=== PATIENT | male | born 1955 | race Caucasian/White ===

== ENCOUNTER → 2016-08-21 | Outpatient (CLI) | payer OTHER ==
[~2016-08-21] VITALS: Ht 177.8 cm; Wt 81.8 kg
[~2016-08-21] MED LIST: ACIDCAP5 PO; ALLE180T33 PO; ECHI400C2 PO; GINSCAP3 PO; NS 1,000 ML IV SCH; PROPOFOL 200 MG/20 ML VIAL As Ordered ONE; TUMERIC PO; VITACAP9 PO
--- NOTE | 2016-08-21 07:55 | ROOR ---
Patient Name: Conor Sandra Procedure Date: 08/21/2016 7:32 AM Date of : 1955 Age: 61 Room: [facility] Gender: Male Note Status: Finalized Procedure: Colonoscopy to Cecum + Biopsy Polypectomy Indications: High risk colon cancer surveillance: Personal history of colonic polyps, Last colonoscopy: 2012 Providers: Som Carpenter MD Referring MD: CAMI GAYLE MD Requesting Provider: Medicines: Monitored Anesthesia Care Complications: No immediate complications. Procedure: Pre-Anesthesia Assessment: - The heart rate, respiratory rate, oxygen saturations, blood pressure, adequacy of pulmonary ventilation, and response to care were monitored throughout the procedure. The Colonoscope was introduced through the anus and advanced to the cecum, identified by appendiceal orifice and ileocecal valve. The colonoscopy was performed without difficulty. The patient tolerated the procedure well. The quality of the bowel preparation was excellent. Findings: The perianal and digital rectal examinations were normal. Non-bleeding internal hemorrhoids were found during retroflexion. The hemorrhoids were small and Grade I (internal hemorrhoids that do not prolapse). A small polyp was found in the cecum. The polyp was sessile. The polyp was removed with a cold biopsy forceps. Resection and retrieval were complete. The exam was otherwise without abnormality on direct and retroflexion views. Impression: - Non-bleeding internal hemorrhoids. - One small polyp in the cecum, removed with a cold biopsy forceps. Resected and retrieved. - The examination was otherwise normal on direct and retroflexion views. - The exam was otherwise normal to the cecum. Recommendation: - Patient has a contact number available for emergencies. The signs and symptoms of potential delayed complications were discussed with the patient. Return to normal activities tomorrow. Written discharge instructions were provided to the patient. - High fiber diet. - Discharge patient to home. - Continue present medications. - Await pathology results. - Telephone GI clinic for pathology results in 1 week. - Repeat colonoscopy in 5 years for surveillance based on pathology results. - Return to referring physician. - The findings and recommendations were discussed with the patient's family. Som Carpenter MD Som Carpenter MD 08/21/2016 7:54:53 AM This report has been signed electronically. Number of Addenda: 0 Note Initiated On: 08/21/2016 7:32 AM Estimated Blood Loss: Estimated blood loss: none.
[2016-08-21 08:19] VITALS: BP 125/60
== END | disposition home or self-care (01) ==
LOC: M OPP 06:45
PROVIDERS: ATTEND Internal Medicine Gastroenterology
DX: Z12.11 Encounter for screening for malignant neoplasm of colon (principal); K64.0 First degree hemorrhoids; D12.0 Benign neoplasm of cecum; F17.200 Nicotine dependence, unspecified, uncomplicated; F17.228 Nicotine dependence, chewing tobacco, with other nicotine-induced disorders; Z79.899 Other long term (current) drug therapy

== ENCOUNTER → 2016-09-29 | Outpatient (CLI) | payer OTHER ==
[~2016-09-29] MED LIST changes: -NS 1,000 ML IV SCH; -PROPOFOL 200 MG/20 ML VIAL As Ordered ONE
[2016-09-29 08:56] LABS: MEAN CORPUSCULAR HEMOGLOBIN 31.5 pg (27.0-33.0); RED CELL DISTRIBUTION WIDTH 13.7 % (11.5-14.5); WHITE BLOOD COUNT 6.6 K/mm3 (4.0-10.0)
--- NOTE | 2016-09-29 09:10 | REP ---
Clinical: Chest pain and fatigue. Comparison: 06/13/2013 . Technique: PA and lateral. Findings: The mediastinum and cardiac silhouette are normal. The lung butt are clear and without acute consolidation, effusion, or pneumothorax. The skeletal structures are intact and normal. Impression: 1. No acute cardiopulmonary process. Signed by Hussein Arguelles MD 09/29/2016 09:01 A
[2016-09-29 09:21] LABS: ALBUMIN 3.8 GM/DL (3.2-5.2); ALBUMIN/GLOBULIN RATIO 1.46 (1.00-1.93); BILIRUBIN,TOTAL 0.4 MG/DL (0.2-1.0); CALCIUM LEVEL 8.7 MG/DL (8.8-10.2); CREATININE FOR GFR 1.3 MG/DL (0.70-1.30); GLOMERULAR FILTRATION RATE 59.4 (>49); POTASSIUM SERUM 4.2 MEQ/L (3.5-5.1); TOTAL PROTEIN 6.4 GM/DL (6.4-8.2)
--- NOTE | 2016-09-29 16:38 | ECGEPIP ---
Stationary ECG Study [facility] Test Date: 2016-09-29 Pat Name: LAURIE PENA Department: Room: - Gender: M Candy Dipper: MICHELLE : 1955 Requested By: Viviana Jenkins Order Number: [id number] Reading MD: Buster Chau Measurements Intervals [place] Rate: 56 P: 42 AK: 142 QRS: 16 QRSD: 88 T: 62 QT: 388 QTc: 377 Interpretive Statements SINUS BRADYCARDIA No significant change compared with 06/13/2013. Electronically Signed On 09-29-2016 16:38:21 EST by Buster Chau
== END ==
LOC: M LAB 08:28
PROVIDERS: ATTEND Family Medicine
DX: R53.83 Other fatigue (principal)

== ENCOUNTER → 2017-02-23 | Outpatient (CLI) | payer OTHER ==
[~2017-02-23] MED LIST changes: +GASTROGRAFIN SOLUTION 30ML (Q9963) As Ordered ONE; +ISOVUE-370 76% 100ML VIAL (Q9967) As Ordered ONE
--- NOTE | 2017-02-23 11:44 | REP ---
CT of the chest with IV contrast for restaging lymphoma: Comparison: 2014. The two enlarged right axillary lymph nodes identified previously have decreased size, one measuring 7 mm (12 mm previously and the other measuring 9 mm (15 mm previously. There are other normal-size axillary nodes bilaterally. Previously there was an enlarged aortopulmonic window node measuring 10 mm. This node today measures 6 mm. There is no other mediastinal lymph node enlargement. There is no axillary lymph node enlargement. There are no acute infiltrates or pleural effusions. There are no lung masses or nodules. Thoracic aorta is unremarkable. The cardiac size is normal. Impression: The previously identified enlarged lymph nodes in the right axilla and mediastinum have decreased size and are now normal size. There is no new lymph node enlargement. Otherwise, negative CT study of the chest. Signed by Conor Norton MD 02/23/2017 11:34 A
--- NOTE | 2017-02-23 12:01 | REP ---
CT abdomen pelvis multiphase scanning for restaging of lymphoma: Comparison is 2014 The study is initially performed without IV contrast. There is biphasic imaging after IV contrast during the arterial phase of enhancement later during the equilibrium phase of enhancement. There are multiple hepatic cysts, not significantly changed. The hepatic parenchyma is otherwise homogeneous. There are multiple gallbladder calculi with ring shaped calcification. These were also present previously. There is no gallbladder wall thickening, pericholecystic fluid or biliary duct dilatation. The pancreas and spleen are unremarkable. There are no focal splenic lesions. The adrenals and kidneys are unremarkable. The periaortic adenopathy identified previously has decreased in size today measuring 9 mm short axis, previously 13 mm. The previously identified left iliac adenopathy has resolved. The previously identified left femoral adenopathy has decreased measuring 7 mm short axis (previously 14 mm). The previously identified inguinal adenopathy has resolved. There is no mesenteric adenopathy or ascites. There are no lytic, blastic or destructive skeletal changes. There is a left renal cortical cyst, unchanged. Impression: The patient's known adenopathy has also improved. There are no new lymph nodes. No enlarging lymph nodes. No ascites. No mesenteric adenopathy. Multiple hepatic cysts are unchanged. Left renal cortical cyst is unchanged. There are no focal splenic lesions. Cholelithiasis, unchanged. Signed by Conor Norton MD 02/23/2017 11:52 A
== END ==
LOC: M RAD 09:31
PROVIDERS: ATTEND Internal Medicine Medical Oncology
DX: C82.90 Follicular lymphoma, unspecified, unspecified site (principal); K80.20 Calculus of gallbladder without cholecystitis without obstruction; K76.89 Other specified diseases of liver; N28.1 Cyst of kidney, acquired
CPT/HCPCS: 71260; 74178; Q9963; Q9967

== ENCOUNTER → 2017-03-07 | Outpatient (CLI) | payer OTHER ==
[~2017-03-07] MED LIST changes: -GASTROGRAFIN SOLUTION 30ML (Q9963) As Ordered ONE; -ISOVUE-370 76% 100ML VIAL (Q9967) As Ordered ONE
[2017-03-07 09:57] LABS: MEAN CORPUSCULAR HEMOGLOBIN 32.6 pg (27.0-33.0); MEAN CORPUSCULAR HGB CONC 34.2 g/dl (32.0-36.5); MEAN CORPUSCULAR VOLUME 95.3 fl (80.0-96.0); RED CELL DISTRIBUTION WIDTH 13.1 % (11.5-14.5); WHITE BLOOD COUNT 9.6 K/mm3 (4.0-10.0)
[2017-03-07 10:05] LABS: INR 0.88
[2017-03-07 10:25] LABS: ALBUMIN 3.6 GM/DL (3.2-5.2); ALBUMIN/GLOBULIN RATIO 1.16 (1.00-1.93); ALKALINE PHOSPHATASE 417 U/L (45-117); ALT/SGPT 307 U/L (12-78); ANION GAP 9 MEQ/L (8-16); AST/SGOT 129 U/L (15-37); BILIRUBIN,TOTAL 0.8 MG/DL (0.2-1.0); BLOOD UREA NITROGEN 20 MG/DL (7-18); CALCIUM LEVEL 8.9 MG/DL (8.8-10.2); CARBON DIOXIDE LEVEL 28 MEQ/L (21-32); CHLORIDE LEVEL 104 MEQ/L (98-107); CHOLESTEROL LEVEL 145 MG/DL (<200); CREATININE FOR GFR 1.16 MG/DL (0.70-1.30); GLOMERULAR FILTRATION RATE > 60.0 (>49); GLUCOSE, FASTING 98 MG/DL (80-110); POTASSIUM SERUM 4.8 MEQ/L (3.5-5.1); SODIUM LEVEL 141 MEQ/L (136-145); TOTAL PROTEIN 6.7 GM/DL (6.4-8.2); TRIGLYCERIDES LEVEL 79 MG/DL (<150)
== END ==
LOC: M LAB 09:03
PROVIDERS: ATTEND Family Medicine
DX: Z01.818 Encounter for other preprocedural examination (principal); I10 Essential (primary) hypertension; R53.83 Other fatigue

== ENCOUNTER 2017-03-16 05:51 | Day surgery (SDC) | payer OTHER ==
[~2017-03-16] VITALS: Ht 177.8 cm; Wt 74.8 kg
[2017-03-16] MEDS ORDERED: LR 1,000 ML IV ONE (06:00)
[2017-03-16] MEDS ORDERED: LIDOCAINE W/EPINEPHRINE 1% 20ML VIAL As Ordered ONE (07:17)
[2017-03-16] MEDS ORDERED: OXYMETAZOLINE NASAL SPRAY (AFRIN) As Ordered ONE (07:26)
[2017-03-16] MEDS ORDERED: ONDANSETRON 4MG/2ML VIAL (J2405) As Ordered ONE (08:04)
[2017-03-16] MEDS ORDERED: fentaNYL 250 MCG/5 ML INJECTION (J3010) As Ordered ONE (08:04)
[2017-03-16] MEDS ORDERED: ROCURONIUM BROMIDE 50 MG/5 ML VIAL/SYRINGE As Ordered ONE (08:04)
[2017-03-16] MEDS ORDERED: LIDOCAINE 2% INJ 100 MG/5 ML SDV (FOR ANES.) As Ordered ONE (08:04)
[2017-03-16] MEDS ORDERED: MIDAZOLAM INJ 2 MG/2 ML VIAL (J2250) As Ordered ONE (08:04)
[2017-03-16] MEDS ORDERED: PROPOFOL 200 MG/20 ML VIAL As Ordered ONE ×2 (08:04→08:18)
[2017-03-16] MEDS ORDERED: dexameTHASONE 4 MG/ML 1ML VIAL (J1100) As Ordered ONE (08:04)
[2017-03-16] MEDS ORDERED: ePHEDrine SULFATE 25 MG/5 ML(5MG/ML) SYRINGE As Ordered ONE (08:04)
[2017-03-16] MEDS ORDERED: GLYCOPYRROLATE INJ 0.2 MG/ML 2 ML VIAL As Ordered ONE (08:12)
[2017-03-16] MEDS ORDERED: NEOSTIGMINE 1MG/ML 5 ML SYRINGE (J2710) As Ordered ONE (08:12)
[2017-03-16] MEDS ORDERED: MEPERIDINE INJ 25 MG/ML VIAL (J2175) IV PRN (09:00)
[2017-03-16] MEDS ORDERED: METOCLOPRAMIDE INJ 10MG/2ML VIAL (J2765) IV PRN (09:00)
[2017-03-16] MEDS ORDERED: ONDANSETRON 4MG/2ML VIAL (J2405) IV PRN (09:00)
[2017-03-16] MEDS ORDERED: PERCOCET 5MG/325MG TAB PO PRN (09:00)
[2017-03-16] MEDS ORDERED: LR 1,000 ML IV SCH ×2 (09:00)
[2017-03-16] MEDS ORDERED: fentaNYL 100 MCG/2 ML INJECTION (J3010) IV PRN (09:00)
[2017-03-16 11:00] VITALS: BP 128/61
--- NOTE | 2017-03-17 08:09 | RO ---
DATE OF PROCEDURE: 03/16/2017 PREPROCEDURE DIAGNOSIS: Right maxillary cyst. POSTPROCEDURE DIAGNOSIS: Right maxillary cyst. PROCEDURE: Removal of right maxillary radicular cyst. SURGEON: Gordon Stanford DMD HALL CLEANER: None ANESTHESIA: General ESTIMATED BLOOD LOSS: 10 mL. SPECIMENS: Radicular cyst. COMPLICATIONS: None. DESCRIPTION OF PROCEDURE: All R/B/A explained to patient. All questions answered. Informed consent obtained. Patient was brought into the operating room by anesthesia and placed in a supine position. All the monitors were placed. Patient was intubated nasally using a 6.5 nasal tube. Tube placement confirmed using CO2 monitor and positive capnography. Surgeon went to scrub and approach the patient in a sterile fashion. Moist vaginal packing used as a throat pack. Bite block placed and found to fit passively. Approximately 8cc of lidocaine 1% with 1/100,000 epinephrine used via infiltration of anterior maxilla from area of #5 to area of #12. Tolerated well. No complications. 15 blade used in a sulcular fashion on the palate to create a flap. Full mucoperiosteal palatal flap performed from area of #5 extending and crossing the midline to area of #12. Cystic lesion encountered and curretage of lesion performed. Cystic lining send to pathological examination. Area examined and no perforation noted on nasal mucosa and/.or maxillary sinus. Area irrigated and closed using 3-0 chromic. Throat pack and bite block removed and patient extubated when criteria was meet by anesthesia Patient transferred to recovery in stable condition Gordon Stanford DMD [facility]
== END 2017-03-16 11:20 | disposition home or self-care (01) ==
LOC: M SDC 05:51
PROVIDERS: ATTEND Dentist Oral and Maxillofacial Surgery
DX: K04.8 Radicular cyst (principal); C85.90 Non-Hodgkin lymphoma, unspecified, unspecified site; K58.9 Irritable bowel syndrome, unspecified; Z79.899 Other long term (current) drug therapy; Z92.21 Personal history of antineoplastic chemotherapy; Z85.828 Personal history of other malignant neoplasm of skin; Z92.3 Personal history of irradiation; Z72.0 Tobacco use
CPT/HCPCS: 41826; 88305; J1100; J2250; J2405; J2710; J3010

== ENCOUNTER → 2017-04-19 | Outpatient (CLI) | payer OTHER ==
[2017-04-19 10:05] LABS: ALKALINE PHOSPHATASE 217 U/L (45-117); ALT/SGPT 323 U/L (12-78); AST/SGOT 185 U/L (15-37)
== END ==
LOC: M LAB 08:45
PROVIDERS: ATTEND Family Medicine
DX: R10.9 Unspecified abdominal pain (principal)

== ENCOUNTER → 2017-06-13 | Outpatient (CLI) | payer OTHER ==
[2017-06-13 09:26] LABS: MEAN CORPUSCULAR HEMOGLOBIN 31.9 pg (27.0-33.0); MEAN CORPUSCULAR HGB CONC 34.1 g/dl (32.0-36.5); MEAN CORPUSCULAR VOLUME 93.6 fl (80.0-96.0); PLATELET COUNT, AUTOMATED 210 10^3/uL (150-450); WHITE BLOOD COUNT 6.7 10^3/uL (4.0-10.0)
[2017-06-13 10:20] LABS: ALBUMIN 3.9 GM/DL (3.2-5.2); ALBUMIN/GLOBULIN RATIO 1.39 (1.00-1.93); BILIRUBIN,TOTAL 0.5 MG/DL (0.2-1.0); CALCIUM LEVEL 9.1 MG/DL (8.8-10.2); CREATININE FOR GFR 1.34 MG/DL (0.70-1.30); GLOMERULAR FILTRATION RATE 57.1 (>49); POTASSIUM SERUM 4.2 MEQ/L (3.5-5.1); TOTAL PROTEIN 6.7 GM/DL (6.4-8.2)
== END ==
LOC: M LAB 08:53
PROVIDERS: ATTEND Family Medicine
DX: E03.9 Hypothyroidism, unspecified (principal)

== ENCOUNTER 2018-04-12 08:41 | Day surgery (SDC) | payer MEDICARE, OTHER ==
[2018-04-12] MEDS: LIDOCAINE W/EPINEPHRINE 1% 20ML VIAL As Ordered (11:05)
[2018-04-12] MEDS: BUPIVACAINE/EPIN 0.25% 30 ML VIAL As Ordered (11:05)
[2018-04-12] MEDS: BACITRACIN OINT 30GM As Ordered (11:07)
[2018-04-12] MEDS ORDERED: PROPOFOL 200 MG/20 ML VIAL As Ordered (11:13)
[2018-04-12] MEDS ORDERED: LIDOCAINE 2% INJ 100 MG/5 ML SDV (FOR ANES.) As Ordered (11:13)
== END 2018-04-12 12:25 | disposition home or self-care (01) ==
LOC: M SDC 12:25
DX: C85.91 Non-Hodgkin lymphoma, unspecified, lymph nodes of head, face, and neck (principal); K58.9 Irritable bowel syndrome, unspecified; Z79.899 Other long term (current) drug therapy; Z92.21 Personal history of antineoplastic chemotherapy; Z92.3 Personal history of irradiation; Z72.0 Tobacco use
CPT/HCPCS: 11422

== ENCOUNTER → 2018-05-07 | Outpatient (CLI) | payer MEDICARE, OTHER | LOC: M PLARAD 09:28 | DX: C82.08 Follicular lymphoma grade I, lymph nodes of multiple sites (principal) | CPT/HCPCS: 78815 ==

== ENCOUNTER → 2018-05-24 | Outpatient (CLI) | payer MEDICARE, OTHER ==
[~2018-05-24] MED LIST changes: -ACIDCAP5 PO; -ALLE180T33 PO; -ECHI400C2 PO; -GINSCAP3 PO; +LIDOCAINE 1% MDV 20ML VIAL As Ordered; -TUMERIC PO; -VITACAP9 PO
== END ==
LOC: M RADPRO 08:34
DX: C85.12 Unspecified B-cell lymphoma, intrathoracic lymph nodes (principal); R22.2 Localized swelling, mass and lump, trunk
CPT/HCPCS: 62267

== ENCOUNTER → 2018-07-04 | Outpatient (CLI) | payer MEDICARE, OTHER | LOC: M SMT 13:08 | DX: Z01.818 Encounter for other preprocedural examination (principal); R91.8 Other nonspecific abnormal finding of lung field | CPT/HCPCS: 71046 ==

== ENCOUNTER 2018-07-09 07:14 | Day surgery (SDC) | payer MEDICARE, OTHER ==
[2018-07-09] MEDS ORDERED: MUPIROCIN 2% OINT 22 GM TUBE TOP (07:30)
[2018-07-09] MEDS: LR 1,000 ML IV (07:50)
[2018-07-09] MEDS ORDERED: PROPOFOL 200 MG/20 ML VIAL As Ordered (07:59)
[2018-07-09] MEDS ORDERED: MIDAZOLAM INJ 2 MG/2 ML VIAL (J2250) As Ordered ×2 (07:59→08:19)
[2018-07-09] MEDS ORDERED: fentaNYL 100 MCG/2 ML INJECTION (J3010) As Ordered (08:04)
[2018-07-09] MEDS: HEPARIN SOD (PORCINE) 5000 UNITS/ML VIAL As Ordered (08:38)
[2018-07-09] MEDS: LIDOCAINE 1% SDV INJ 30 ML VIAL As Ordered (08:38)
[2018-07-09] MEDS ORDERED: ePHEDrine SULFATE 25 MG/5 ML(5MG/ML) SYRINGE As Ordered (08:47)
[2018-07-09] MEDS: BUPIVACAINE LIPOSOME/PF 1.3% 20ML VIAL (13.3MG/ML)(EXPAREL)(C9290 PER1MG) As Ordered (08:58)
[2018-07-09] MEDS ORDERED: LR 1,000 ML IV (09:30)
[2018-07-09] MEDS ORDERED: NORCO, ANEXSIA 5/325MG TABLET (HYDROcodone/ACETAMINOPHEN) PO (09:30)
[2018-07-09] MEDS ORDERED: ONDANSETRON 4MG/2ML VIAL (J2405) IV (09:30)
== END 2018-07-09 10:15 | disposition home or self-care (01) ==
LOC: M SDC 07:14
DX: C82.11 Follicular lymphoma grade II, lymph nodes of head, face, and neck (principal); Z45.2 Encounter for adjustment and management of vascular access device; K58.8 Other irritable bowel syndrome; Z92.3 Personal history of irradiation; Z92.21 Personal history of antineoplastic chemotherapy; Z79.899 Other long term (current) drug therapy
CPT/HCPCS: 36561

== ENCOUNTER → 2018-07-15 | Outpatient (CLI) | payer MEDICARE, OTHER | LOC: M SMT 10:48 | DX: C82.91 Follicular lymphoma, unspecified, lymph nodes of head, face, and neck (principal); R91.1 Solitary pulmonary nodule; M51.34 Other intervertebral disc degeneration, thoracic region; Z97.8 Presence of other specified devices | CPT/HCPCS: 71046 ==

== ENCOUNTER 2018-09-09 13:12 | Emergency (ER) | payer MEDICARE, OTHER ==
[~2018-09-09] VITALS: Ht 177.8 cm; Wt 79.5 kg
[~2018-09-09 13:12] MED LIST changes: +ACIDCAP5 PO; +ALLE180T33 PO; +ECHI400C2 PO; +GARL1200 PO; +GINSCAP3 PO; +LEVS0.124 SL; -LIDOCAINE 1% MDV 20ML VIAL As Ordered; +TUMERIC PO; +VITACAP9 PO
[2018-09-09 14:16] LABS: BASO % 0.3 % (0.0-1.0); EOS # 0.1 10^3/uL (0.0-0.50); EOS % 1.4 % (0.0-3.0); HEMOGLOBIN 13.1 g/dl (13.5-17.5); LYMPH % 2.9 % (24.0-44.0); MEAN CORPUSCULAR HEMOGLOBIN 31.2 pg (27.0-33.0); MEAN CORPUSCULAR HGB CONC 34.5 g/dl (32.0-36.5); MEAN CORPUSCULAR VOLUME 90.5 fl (80.0-96.0); MONO # 1.1 10^3/uL (0.0-0.8); MONO % 18.2 % (0.0-5.0); NEUTROPHILS # 4.8 10^3/uL (1.8-7.7); NEUTROPHILS % 76.9 % (36.0-66.0); PLATELET COUNT, AUTOMATED 215 10^3/uL (150-450); WHITE BLOOD COUNT 6.3 10^3/uL (4.0-10.0)
[2018-09-09 14:48] LABS: LYMPH # 0.2 10^3/uL (1.5-4.5)
[2018-09-09 14:50] LABS: ALBUMIN 3.8 GM/DL (3.2-5.2); ALT/SGPT 21 U/L (12-78); BILIRUBIN,DIRECT 0.2 MG/DL (0.0-0.2); BILIRUBIN,TOTAL 0.9 MG/DL (0.2-1.0); BLOOD UREA NITROGEN 9 MG/DL (7-18); CALCIUM LEVEL 9.1 MG/DL (8.8-10.2); CARBON DIOXIDE LEVEL 30 MEQ/L (21-32); CHLORIDE LEVEL 99 MEQ/L (98-107); CPK CREATINE PHOSPHOKINASE 58 U/L (39-308); CREATININE FOR GFR 0.92 MG/DL (0.70-1.30); GLOMERULAR FILTRATION RATE > 60.0 (>49); GLUCOSE, FASTING 94 MG/DL (70-100); LIPASE 100 U/L (73-393); MB/CK RELATIVE INDEX 2.07 (< OR =4); POTASSIUM SERUM 3.9 MEQ/L (3.5-5.1); SODIUM LEVEL 136 MEQ/L (136-145); TOTAL PROTEIN 6.7 GM/DL (6.4-8.2); TROPONIN I < 0.02 NG/ML (< 0.10)
--- NOTE | 2018-09-09 15:46 | REP ---
ABDOMEN FLAT UPRIGHT PA CHEST, THREE VIEWS: HISTORY: Left epigastric pain. A small amount of air is present in small and large intestine. There were no air fluid levels or dilated loops of intestine. There is no pneumoperitoneum. Degenerative change is present in the spine and hips. The lungs are clear. An Zlagsi-V-Zxqq catheter is present. IMPRESSION: Nonspecific bowel gas pattern. Electronically Signed by Ad River MD 09/09/2018 03:58 P
[2018-09-09] MEDS ORDERED: PROT20TA11 PO (16:34)
[2018-09-09] MEDS ORDERED: DICY20TA11 PO (16:34)
[2018-09-09 16:52] VITALS: BP 161/76
--- NOTE | 2018-09-09 19:59 | ECGEPIP ---
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
== END 2018-09-09 16:57 | disposition home or self-care (01) ==
LOC: M ED 13:12
DX: K29.70 Gastritis, unspecified, without bleeding (principal); K58.9 Irritable bowel syndrome, unspecified; R00.1 Bradycardia, unspecified; C85.90 Non-Hodgkin lymphoma, unspecified, unspecified site; Z79.899 Other long term (current) drug therapy

== ENCOUNTER → 2018-12-12 | Outpatient (CLI) | payer MEDICARE, OTHER ==
[~2018-12-12] MED LIST changes: +DICY20TA11 PO; +PROT20TA11 PO; +RA T500C2 PO; +VITABCTA PO; +[UNRECOGNIZED DRUG - CODE] PO
--- NOTE | 2018-12-12 07:24 | PFTRPT ---
Site: [facility], [address] [place], [address] ID: [id number] Name: LAURIE PENA Visit Date: 12/12/2018 Second ID: [id number] Referring Doctor: Sujata Cortez MD Reviewing Doctor: Vince Magdaleno MD Senior Engineering Specialist: Tyler CHEUNG RRT Age: 63 : 1955 Sex: Male Race: Height: 70.00 Inches Weight: 175.00 Lbs BSA: 1.97 Order IDs: [id number] Requested Test(s): <RESP-PFT.DLCO> Diagnosis: C82.10 test appear to be valid, although the ATS standard for "end of test" was not met. Review Status: Not Reviewed Pre-Bronch Post-Bronch Pred Actual %Pred Actual %Chng SPIROMETRY FVC (L) 4.58 4.46 97 FEV1 (L) 3.41 3.19 93 FEV1/FVC (%) 74 72 96 FEF 25% (L/sec) 7.02 7.41 105 FEF 50% (L/sec) 4.09 2.63 64 FEF 75% (L/sec) 1.24 0.59 47 FEF 25-75% (L/sec) 2.69 2.01 74 FEF Max (L/sec) 8.76 9.62 109 FIVC (L) 4.38 FIF 50% (L/sec) 4.57 6.85 149 FIF Max (L/sec) 6.86 MVV (L/min) 133 136 102 Expiratory Time (sec) 8.10 Back Extrap Vol (L) 0.11 Time To FEFmax (sec) 0.080 LUNG VOLUMES SVC (L) 4.65 4.45 95 IC (L) 3.32 2.71 81 ERV (L) 1.33 1.73 130 TGV (L) 3.69 3.95 107 RV (Pleth) (L) 2.36 2.22 94 TLC (Pleth) (L) 7.01 6.67 95 RV/TLC (Pleth) (%) 34 33 97 DIFFUSION DLCOunc (ml/min/mmHg) 27.11 15.23 56 DL/VA (ml/min/mmHg/L) 3.87 2.17 55 VA (L) 7.01 7.03 100 BHT (sec) 9.79 IVC (L) 4.34 TLC (SB) (L) 7.18 AIRWAYS RESISTANCE Raw (cmH2O/L/s) 1.45 1.40 96 Gaw (L/s/cmH2O) 1.03 0.73 70 sRaw (cmH2O*s) 4.76 5.70 119 sGaw (1/cmH2O*s) 0.20 0.18 88
--- NOTE | 2018-12-12 19:09 | ECHO ---
DATE OF PROCEDURE: 12/12/2018 AGE: 63 GENDER: Male HEIGHT: 70 inches WEIGHT: 175 pounds BODY SURFACE AREA: 1.97 m2 PATIENT LOCATION: Outpatient. REFERRING PHYSICIAN: Dr. Sujata Cortez INDICATION: Follicular lymphoma - potentially toxic chemotherapy. 2-D MEASUREMENTS: RV: 3.7 cm LV: 5.1 cm Septum: 0.9 cm Posterior wall: 0.9 cm Aortic root: 3.3 cm LA: 3.8 cm LVEF: 65% DOPPLER MEASUREMENTS: AV: 1.4 m/s LVOT: 0.82 m/s LVOT diameter: 2.0 cm MV-E: 52, A: 67, EA ratio: 0.8 Early mitral deceleration time: 303 ms E prime: 6.4, A prime: 15, E/E prime ratio: 8.2 PV: 0.8 m/s Pulmonary artery acceleration time: 109 ms RVSP: 30 mmHg IVC: 1.4 cm COMMENTS Sinus bradycardia without intraventricular conduction disturbance. M-mode and two-dimensional echocardiography was performed with pulsed, continuous wave, color flow, and tissue Doppler studies. Normal left ventricular size, wall thickness and wall motion. Left atrial size upper limits of normal to slightly increased with Doppler evidence of an impairment of LV diastolic function, but currently estimated mean left atrial pressure within normal limits. Normal right heart chamber sizes and motion with Doppler evidence of pulmonary arterial pressure upper limits of normal to borderline increased. Normal IVC size and collapse. Mild aortic valvular sclerosis without functional abnormality. Normal aortic root size. Normal-appearing mitral valvular apparatus with very mild insufficiency. Normal tricuspid valve with mild insufficiency. No apparent intracardiac mass or pericardial effusion. MTDD
== END ==
LOC: M CARPUL 06:43
PROVIDERS: ATTEND Internal Medicine Hematology & Oncology
DX: I35.0 Nonrheumatic aortic (valve) stenosis (principal); R00.1 Bradycardia, unspecified; C82.10 Follicular lymphoma grade II, unspecified site; Z92.21 Personal history of antineoplastic chemotherapy

== ENCOUNTER → 2019-03-05 | Outpatient (REF) | payer MEDICARE, OTHER ==
[2019-03-05 15:50] LABS: HEMATOCRIT 28.3 % (42.0-52.0); HEMOGLOBIN 9.5 g/dl (13.5-17.5); MEAN CORPUSCULAR HEMOGLOBIN 33.3 pg (27.0-33.0); MEAN CORPUSCULAR HGB CONC 33.6 g/dl (32.0-36.5); MEAN CORPUSCULAR VOLUME 99.3 fl (80.0-96.0); RED BLOOD COUNT 2.85 10^6/uL (4.30-6.10); WHITE BLOOD COUNT 15.9 10^3/uL (4.0-10.0)
[2019-03-05 16:16] LABS: ALBUMIN 3.4 GM/DL (3.2-5.2); ALT/SGPT 35 U/L (12-78); BILIRUBIN,TOTAL 0.4 MG/DL (0.2-1.0); BLOOD UREA NITROGEN 14 MG/DL (7-18); C REACTIVE PROTEIN QUANTITATIV 4.13 MG/DL (0.00-0.30); CALCIUM LEVEL 9.1 MG/DL (8.8-10.2); CARBON DIOXIDE LEVEL 30 MEQ/L (21-32); CHLORIDE LEVEL 103 MEQ/L (98-107); CREATININE FOR GFR 1.21 MG/DL (0.70-1.30); GLOMERULAR FILTRATION RATE > 60.0 (>49); GLUCOSE, FASTING 81 MG/DL (70-100); POTASSIUM SERUM 3.6 MEQ/L (3.5-5.1); SODIUM LEVEL 140 MEQ/L (136-145); TOTAL PROTEIN 6.1 GM/DL (6.4-8.2)
[2019-03-05 16:26] LABS: PLATELET COUNT, AUTOMATED 30 10^3/uL (150-450)
[2019-03-05 16:30] LABS: LYMPHOCYTES 5 % (16-52); METAMYELOCYTES 1 % (0-0); MONOCYTES 10 % (0-8); MYELOCYTES 2 % (0-0); NEUTROPHILS 78 % (35-75)
[2019-03-05 16:31] LABS: ANISOCYTOSIS 1+; PLATELET ESTIMATE MARKED DECREASE (NORMAL); POLYCHROMASIA 1+
[2019-03-05 16:32] LABS: OVALOCYTES 1+; POIKILOCYTOSIS 1+
[2019-03-05 17:19] LABS: ERYTHROCYTE SEDIMENTATION RATE 50 mm/hr (0-20)
== END ==
LOC: M SHH 15:20
PROVIDERS: ATTEND Internal Medicine
DX: R78.81 Bacteremia (principal); B95.2 Enterococcus as the cause of diseases classified elsewhere; Z79.2 Long term (current) use of antibiotics

== ENCOUNTER → 2019-04-28 | Outpatient (REF) | payer MEDICARE, OTHER ==
[~2019-04-28] MED LIST changes: +ACYC400T PO; +FOLI1TAB11 PO; +LOMO2.5T PO; +POTA1TAB14 PO; +SULF1TAB93 PO; +TAB-TAB3 PO; +VANC125C3 PO
== END ==
LOC: M LAB REF 09:55
PROVIDERS: ATTEND Internal Medicine Hematology & Oncology
DX: Z11.9 Encounter for screening for infectious and parasitic diseases, unspecified (principal)

== ENCOUNTER → 2019-07-01 | Outpatient (REF) | payer MEDICARE, OTHER ==
[~2019-07-01] MED LIST changes: +AMPI500C9 PO; +ONDA4TAB5 PO
[2019-07-01 12:43] LABS: HEMATOCRIT 35.7 % (42.0-52.0); HEMOGLOBIN 11.5 g/dl (13.5-17.5); MEAN CORPUSCULAR HEMOGLOBIN 32.7 pg (27.0-33.0); MEAN CORPUSCULAR HGB CONC 32.2 g/dl (32.0-36.5); MEAN CORPUSCULAR VOLUME 101.4 fl (80.0-96.0); PLATELET COUNT, AUTOMATED 122 10^3/uL (150-450); RED BLOOD COUNT 3.52 10^6/uL (4.30-6.10)
[2019-07-01 13:12] LABS: ALBUMIN 3.4 GM/DL (3.2-5.2); ALT/SGPT 22 U/L (12-78); BILIRUBIN,TOTAL 0.8 MG/DL (0.2-1.0); BLOOD UREA NITROGEN 12 MG/DL (7-18); CALCIUM LEVEL 8.8 MG/DL (8.8-10.2); CARBON DIOXIDE LEVEL 26 MEQ/L (21-32); CHLORIDE LEVEL 104 MEQ/L (98-107); GLOMERULAR FILTRATION RATE > 60.0 (>49); GLUCOSE, FASTING 111 MG/DL (70-100); POTASSIUM SERUM 3.4 MEQ/L (3.5-5.1); SODIUM LEVEL 139 MEQ/L (136-145); TOTAL PROTEIN 6.4 GM/DL (6.4-8.2)
[2019-07-01 13:21] LABS: ATYPICAL LYMPH 1 % (0-5); EOSINOPHILS 2 % (0-3); LYMPHOCYTES 15 % (16-44); METAMYELOCYTES 1 % (0-0); MONOCYTES 14 % (0-5); NEUTROPHILS 49 % (28-66); PLATELET ESTIMATE NORMAL (NORMAL)
== END ==
LOC: M LAB REF 11:46
PROVIDERS: ATTEND Internal Medicine Hematology & Oncology
DX: C82.00 Follicular lymphoma grade I, unspecified site (principal); Z52.0 Blood donor

== ENCOUNTER → 2019-07-01 | Outpatient (CLI) | payer MEDICARE, OTHER | LOC: M ONCM 06-30 10:03 | PROVIDERS: ATTEND Internal Medicine Hematology & Oncology | DX: Z53.9 Procedure and treatment not carried out, unspecified reason (principal) ==

== ENCOUNTER → 2019-07-15 | Outpatient (REF) | payer MEDICARE, OTHER ==
[~2019-07-15] MED LIST changes: +DAPS10TA PO; +LEVO500T3 PO
[2019-07-15 10:48] LABS: ALBUMIN 3.6 GM/DL (3.2-5.2); ALT/SGPT 22 U/L (12-78); BLOOD UREA NITROGEN 19 MG/DL (7-18); CALCIUM LEVEL 8.5 MG/DL (8.8-10.2); CARBON DIOXIDE LEVEL 28 MEQ/L (21-32); CHLORIDE LEVEL 108 MEQ/L (98-107); CREATININE FOR GFR 1.14 MG/DL (0.70-1.30); GLOMERULAR FILTRATION RATE > 60.0 (>49); GLUCOSE, FASTING 98 MG/DL (70-100); SODIUM LEVEL 141 MEQ/L (136-145); TOTAL PROTEIN 6.1 GM/DL (6.4-8.2)
== END ==
LOC: M LAB REF 10:26
PROVIDERS: ATTEND Internal Medicine Hematology & Oncology
DX: Z52.0 Blood donor (principal); C82.00 Follicular lymphoma grade I, unspecified site

== ENCOUNTER 2019-12-16 09:03 | Outpatient (CLI) | payer MEDICARE, OTHER ==
[~2019-12-16] VITALS: Ht 177.8 cm; Wt 76.3 kg
[~2019-12-16 09:03] MED LIST changes: +ONDA-83 PO; -ONDA4TAB5 PO
[2019-12-16 09:13] VITALS: BP 144/69
[2019-12-16] MEDS ORDERED: IMMUNE GLOBULIN 10% 20 GM in IV 1 EA IV ONE (09:30)
[2019-12-16] MEDS ORDERED: IMMUNE GLOBULIN 10% 10 GM in IV 1 EA IV ONE (09:30)
[2019-12-16] MEDS ORDERED: ACETAMINOPHEN TAB 650MG DOSE (2X325MG) PO ONE (09:30)
[2019-12-16] MEDS ORDERED: diphenhydrAMINE 25MG CAP PO ONE (09:30)
[2019-12-16] MEDS ORDERED: SODIUM CHLORIDE 0.9% INJ 10 ML SYR IV PRN (09:45)
[2019-12-16 10:30] VITALS: BP 140/66
[2019-12-16 11:00] VITALS: BP 157/68
[2019-12-16 11:30] VITALS: BP 129/59
[2019-12-16 12:42] VITALS: BP 136/65
[2019-12-17] MEDS ORDERED: SODIUM CHLORIDE 0.9% INJ 10 ML SYR IV SCH (09:00)
== END 2019-12-16 12:45 | disposition home or self-care (01) ==
LOC: M INFU 09:03
PROVIDERS: ATTEND Internal Medicine Hematology
DX: D61.810 Antineoplastic chemotherapy induced pancytopenia (principal); C82.10 Follicular lymphoma grade II, unspecified site; D80.1 Nonfamilial hypogammaglobulinemia
CPT/HCPCS: 96365; 96366; J1459; J1642

== ENCOUNTER 2020-01-15 08:37 | Outpatient (CLI) | payer MEDICARE, OTHER ==
[~2020-01-15] VITALS: Ht 177.8 cm; Wt 76.4 kg
[2020-01-15] MEDS ORDERED: IMMUNE GLOBULIN 10% 10 GM in IV 1 EA IV ONE (08:45)
[2020-01-15] MEDS ORDERED: ACETAMINOPHEN TAB 650MG DOSE (2X325MG) PO ONE (08:45)
[2020-01-15] MEDS ORDERED: IMMUNE GLOBULIN 10% 20 GM in IV 1 EA IV ONE (08:45)
[2020-01-15] MEDS ORDERED: SODIUM CHLORIDE 0.9% INJ 10 ML SYR IV PRN (09:00)
[2020-01-15] MEDS ORDERED: SODIUM CHLORIDE 0.9% INJ 10 ML SYR IV SCH (09:00)
[2020-01-15] MEDS ORDERED: diphenhydrAMINE 25MG CAP PO ONE (09:00)
[2020-01-15 09:10] VITALS: BP 149/65
[2020-01-15 09:40] VITALS: BP 141/69
[2020-01-15 10:10] VITALS: BP 138/60
[2020-01-15 10:40] VITALS: BP 136/63
[2020-01-15 12:15] VITALS: BP 150/69
== END 2020-01-15 12:15 | disposition home or self-care (01) ==
LOC: M INFU 08:37
PROVIDERS: ATTEND Internal Medicine Hematology & Oncology
DX: D61.810 Antineoplastic chemotherapy induced pancytopenia (principal); C82.10 Follicular lymphoma grade II, unspecified site; D80.1 Nonfamilial hypogammaglobulinemia
CPT/HCPCS: 96365; 96366; J1459; J1642

== ENCOUNTER 2020-02-12 09:38 | Outpatient (CLI) | payer MEDICARE, OTHER ==
[~2020-02-12] VITALS: Ht 177.8 cm; Wt 76.4 kg
[2020-02-12] MEDS ORDERED: ACETAMINOPHEN TAB 650MG DOSE (2X325MG) PO ONE (09:45)
[2020-02-12] MEDS ORDERED: IMMUNE GLOBULIN 10% 10 GM in IV 1 EA IV ONE (09:45)
[2020-02-12] MEDS ORDERED: IMMUNE GLOBULIN 10% 20 GM in IV 1 EA IV ONE (09:45)
[2020-02-12] MEDS ORDERED: diphenhydrAMINE 25MG CAP PO ONE (09:45)
[2020-02-12 09:49] VITALS: BP 137/64
[2020-02-12] MEDS ORDERED: SODIUM CHLORIDE 0.9% INJ 10 ML SYR IV PRN (10:00)
[2020-02-12 10:40] VITALS: BP 135/64
[2020-02-12 11:10] VITALS: BP 118/56
[2020-02-12 11:40] VITALS: BP 142/64
[2020-02-12 13:10] VITALS: BP 139/77
[2020-02-13] MEDS ORDERED: SODIUM CHLORIDE 0.9% INJ 10 ML SYR IV SCH (09:00)
[2020-05-27] MEDS ORDERED: ACYC400T PO (09:06)
== END 2020-02-12 13:10 | disposition home or self-care (01) ==
LOC: M INFU 09:38
PROVIDERS: ATTEND Internal Medicine Hematology & Oncology
DX: D70.9 Neutropenia, unspecified (principal)
CPT/HCPCS: 96365; 96366; J1459; J1642

== ENCOUNTER 2020-03-11 09:30 | Outpatient (CLI) | payer MEDICARE, OTHER ==
[2020-03-11] MEDS ORDERED: diphenhydrAMINE 25MG CAP As Ordered ONE (09:56)
[2020-03-11] MEDS ORDERED: ACETAMINOPHEN TAB 650MG DOSE (2X325MG) As Ordered ONE (09:57)
[2020-03-11] MEDS ORDERED: IMMUNE GLOBULIN 10% 10GM 100ML BOTTLE (PRIVIGEN) (J1459 PER 500MG) As Ordered ONE (10:16)
[2020-03-11] MEDS ORDERED: IMMUNE GLOBULIN 10% 20GM 200ML BOTTLE (PRIVIGEN) (J1459 PER 500MG) As Ordered ONE (10:16)
[2020-03-11] MEDS ORDERED: MAGNESIUM OXIDE 400 MG TAB (MAG-OX) As Ordered ONE (21:50)
[2020-03-11] MEDS ORDERED: THIAMINE 100 MG TAB As Ordered ONE (21:51)
[2020-03-11] MEDS ORDERED: RIVAROXABAN 10 MG TAB (XARELTO) As Ordered ONE (21:51)
[2020-03-11] MEDS ORDERED: SENNA 8.6 MG TAB (SENOKOT) As Ordered ONE (21:51)
[2020-03-11] MEDS ORDERED: AUGMENTIN 875 MG TAB As Ordered ONE (21:51)
[2020-03-11] MEDS ORDERED: traMADol 50 MG TAB As Ordered ONE (21:51)
[2020-03-13] MEDS ORDERED: traMADol 50 MG TAB As Ordered ONE ×3 (06:18→20:24)
[2020-03-13] MEDS ORDERED: MOM 30ML SUSPENSION UDC As Ordered ONE (09:50)
[2020-03-13] MEDS ORDERED: MAGNESIUM OXIDE 400 MG TAB (MAG-OX) As Ordered ONE ×2 (09:50→20:17)
[2020-03-13] MEDS ORDERED: SENOKOT S TAB As Ordered ONE ×2 (09:51→20:18)
[2020-03-13] MEDS ORDERED: METOPROLOL TART 25 MG TABLET As Ordered ONE ×2 (09:51→20:18)
[2020-03-13] MEDS ORDERED: AUGMENTIN 875 MG TAB As Ordered ONE ×2 (09:51→20:17)
[2020-03-13] MEDS ORDERED: MULTIVITAMINS/MINERALS THERAP 1 TAB As Ordered ONE (09:51)
[2020-03-13] MEDS ORDERED: MIRALAX *UNIT DOSE* 17GM PACKET As Ordered ONE (09:51)
[2020-03-13] MEDS ORDERED: THIAMINE 100 MG TAB As Ordered ONE ×2 (09:52→20:18)
[2020-03-13] MEDS ORDERED: FOLIC ACID 1 MG TAB As Ordered ONE (09:52)
[2020-03-13] MEDS ORDERED: RIVAROXABAN 10 MG TAB (XARELTO) As Ordered ONE (17:55)
[2020-03-13] MEDS ORDERED: ACETAMINOPHEN TAB 650MG DOSE (2X325MG) As Ordered ONE ×2 (20:18→23:40)
[2020-03-14] MEDS ORDERED: traMADol 50 MG TAB As Ordered ONE (06:05)
[2020-03-14] MEDS ORDERED: MAGNESIUM OXIDE 400 MG TAB (MAG-OX) As Ordered ONE ×2 (09:14→20:26)
[2020-03-14] MEDS ORDERED: MULTIVITAMINS/MINERALS THERAP 1 TAB As Ordered ONE (09:14)
[2020-03-14] MEDS ORDERED: SENOKOT S TAB As Ordered ONE (09:15)
[2020-03-14] MEDS ORDERED: AUGMENTIN 875 MG TAB As Ordered ONE ×2 (09:15→20:26)
[2020-03-14] MEDS ORDERED: THIAMINE 100 MG TAB As Ordered ONE ×2 (09:15→20:27)
[2020-03-14] MEDS ORDERED: MIRALAX *UNIT DOSE* 17GM PACKET As Ordered ONE (09:15)
[2020-03-14] MEDS ORDERED: FOLIC ACID 1 MG TAB As Ordered ONE (09:16)
[2020-03-14] MEDS ORDERED: ACETAMINOPHEN TAB 650MG DOSE (2X325MG) As Ordered ONE ×2 (12:44→20:27)
[2020-03-14] MEDS ORDERED: RIVAROXABAN 10 MG TAB (XARELTO) As Ordered ONE (17:21)
[2020-03-15] MEDS ORDERED: ACETAMINOPHEN TAB 650MG DOSE (2X325MG) As Ordered ONE ×3 (01:28→14:23)
[2020-03-15] MEDS ORDERED: MAGNESIUM OXIDE 400 MG TAB (MAG-OX) As Ordered ONE (09:02)
[2020-03-15] MEDS ORDERED: THIAMINE 100 MG TAB As Ordered ONE (09:03)
[2020-03-15] MEDS ORDERED: FOLIC ACID 1 MG TAB As Ordered ONE (09:03)
[2020-03-15] MEDS ORDERED: MULTIVITAMINS/MINERALS THERAP 1 TAB As Ordered ONE (09:03)
[2020-03-15] MEDS ORDERED: AUGMENTIN 875 MG TAB As Ordered ONE (09:03)
[2020-03-15] MEDS ORDERED: SENOKOT S TAB As Ordered ONE (09:03)
[2020-03-15] MEDS ORDERED: PERCOCET 5MG/325MG TAB As Ordered ONE (10:01)
[2020-05-27] MEDS ORDERED: ACYC400T PO (09:06)
== END 2020-03-11 13:20 | disposition home or self-care (01) ==
LOC: M INFU 09:30
PROVIDERS: ATTEND Internal Medicine Hematology & Oncology
DX: C85.90 Non-Hodgkin lymphoma, unspecified, unspecified site (principal); C88.8 Other malignant immunoproliferative diseases
CPT/HCPCS: 96365; 96366; J1459; J1642

== ENCOUNTER 2020-04-08 09:40 | Outpatient (CLI) | payer MEDICARE, OTHER ==
[~2020-04-08] VITALS: Ht 177.8 cm; Wt 76.0 kg
[~2020-04-08 09:40] MED LIST changes: +ACETAMINOPHEN TAB 650MG DOSE (2X325MG) PO ONE; +IMMUNE GLOBULIN 10% 10 GM in IV 1 EA IV ONE; +IMMUNE GLOBULIN 10% 20 GM in IV 1 EA IV ONE; +SODIUM CHLORIDE 0.9% INJ 10 ML SYR IV PRN; +SODIUM CHLORIDE 0.9% INJ 10 ML SYR IV SCH; +diphenhydrAMINE 25MG CAP PO ONE
[2020-04-08] MEDS ORDERED: diphenhydrAMINE 25MG CAP As Ordered ONE (09:58)
[2020-04-08] MEDS ORDERED: ACETAMINOPHEN TAB 650MG DOSE (2X325MG) As Ordered ONE (09:58)
[2020-04-08] MEDS ORDERED: IMMUNE GLOBULIN 10% 20GM 200ML BOTTLE (PRIVIGEN) (J1459 PER 500MG) As Ordered ONE (10:15)
[2020-04-08] MEDS ORDERED: IMMUNE GLOBULIN 10% 10GM 100ML BOTTLE (PRIVIGEN) (J1459 PER 500MG) As Ordered ONE (10:15)
[2020-04-08 10:29] VITALS: BP 154/70
[2020-04-08 10:30] VITALS: BP 152/73
[2020-04-08 10:45] VITALS: BP 152/72
[2020-04-08 12:15] VITALS: BP 158/75
[2020-04-08 13:10] VITALS: BP 164/84
[2020-05-27] MEDS ORDERED: ACYC400T PO (09:06)
== END 2020-04-08 13:10 | disposition home or self-care (01) ==
LOC: M INFU 09:40
PROVIDERS: ATTEND Internal Medicine Hematology & Oncology
DX: C82.90 Follicular lymphoma, unspecified, unspecified site (principal); D70.9 Neutropenia, unspecified
CPT/HCPCS: 96365; 96366; J1459

== ENCOUNTER 2020-05-06 09:33 | Outpatient (CLI) | payer MEDICARE, OTHER ==
[~2020-05-06] VITALS: Ht 208.3 cm; Wt 76.4 kg
[2020-05-06 09:40] VITALS: BP 144/58
[2020-05-06 10:30] VITALS: BP 147/75
[2020-05-06 11:00] VITALS: BP 145/71
[2020-05-06 11:30] VITALS: BP 149/70
[2020-05-06 12:50] VITALS: BP 155/70
[2020-05-27] MEDS ORDERED: ACYC400T PO (09:06)
== END 2020-05-06 12:50 | disposition home or self-care (01) ==
LOC: M INFU 09:33
PROVIDERS: ATTEND Internal Medicine Hematology & Oncology
DX: C82.90 Follicular lymphoma, unspecified, unspecified site (principal); D70.9 Neutropenia, unspecified
CPT/HCPCS: 96365; 96366; J1459; J1642

== ENCOUNTER 2020-06-03 09:24 | Outpatient (CLI) | payer MEDICARE, OTHER ==
[~2020-06-03] VITALS: Ht 177.8 cm; Wt 76.4 kg
[~2020-06-03 09:24] MED LIST changes: -ACETAMINOPHEN TAB 650MG DOSE (2X325MG) PO ONE; -IMMUNE GLOBULIN 10% 10 GM in IV 1 EA IV ONE; -IMMUNE GLOBULIN 10% 20 GM in IV 1 EA IV ONE; -diphenhydrAMINE 25MG CAP PO ONE
[2020-06-03] MEDS ORDERED: IMMUNE GLOBULIN 10% 20 GM in IV 1 EA IV ONE (09:30)
[2020-06-03] MEDS ORDERED: ACETAMINOPHEN TAB 650MG DOSE (2X325MG) PO ONE (09:30)
[2020-06-03] MEDS ORDERED: diphenhydrAMINE 25MG CAP PO ONE (09:30)
[2020-06-03] MEDS ORDERED: IMMUNE GLOBULIN 10% 10 GM in IV 1 EA IV ONE (09:30)
[2020-06-03 09:45] VITALS: BP 162/70
[2020-06-03 10:12] VITALS: BP 142/76
[2020-06-03 10:45] VITALS: BP 136/69
[2020-06-03 11:15] VITALS: BP 139/68
== END 2020-06-03 12:45 | disposition home or self-care (01) ==
LOC: M INFU 09:24
PROVIDERS: ATTEND Internal Medicine Hematology & Oncology
DX: D70.9 Neutropenia, unspecified (principal); C82.90 Follicular lymphoma, unspecified, unspecified site
CPT/HCPCS: 96365; J1459; J1642

== ENCOUNTER → 2020-06-13 | Outpatient (CLI) | payer MEDICARE, OTHER ==
[~2020-06-13] MED LIST changes: -SODIUM CHLORIDE 0.9% INJ 10 ML SYR IV PRN; -SODIUM CHLORIDE 0.9% INJ 10 ML SYR IV SCH
== END ==
LOC: M LABSMTC 09:40
PROVIDERS: ATTEND Anesthesiology
DX: Z01.812 Encounter for preprocedural laboratory examination (principal); Z20.828 Contact with and (suspected) exposure to other viral communicable diseases
CPT/HCPCS: C9803; U0003

== ENCOUNTER 2020-06-18 09:27 | Day surgery (SDC) | payer MEDICARE, OTHER ==
[~2020-06-18] VITALS: Ht 177.8 cm; Wt 75.3 kg
[~2020-06-18 09:27] MED LIST changes: +LIDOCAINE 2% 100MG/5ML SDV (FOR ANES.) As Ordered ONE; +NS 1,000 ML IV ONE
[2020-06-18] MEDS ORDERED: propofoL 200 MG/20 ML VIAL As Ordered ONE (09:38)
--- NOTE | 2020-06-18 11:08 | ROOR ---
Patient Name: Conor Sandra Procedure Date: 06/18/2020 10:32 AM Date of : 1955 Age: 65 Room: [facility] Gender: Male Note Status: Finalized Procedure: Total Colonoscopy to Cecum + ileoscopy Indications: High risk colon cancer surveillance: Personal history of colonic polyps, Last colonoscopy: 2016 Providers: Som Carpenter MD Referring MD: KRISTIN GAYLE MD Requesting Provider: Medicines: Monitored Anesthesia Care Complications: No immediate complications. Procedure: Pre-Anesthesia Assessment: - The heart rate, respiratory rate, oxygen saturations, blood pressure, adequacy of pulmonary ventilation, and response to care were monitored throughout the procedure. The Colonoscope was introduced through the anus and advanced to the cecum, identified by appendiceal orifice and ileocecal valve. The colonoscopy was performed without difficulty. The patient tolerated the procedure well. The quality of the bowel preparation was good. Findings: The perianal and digital rectal examinations were normal. Non-bleeding internal hemorrhoids were found during retroflexion. The hemorrhoids were small and Grade I (internal hemorrhoids that do not prolapse). Multiple small and large-mouthed diverticula were found in the recto-sigmoid colon, sigmoid colon and descending colon. The exam was otherwise without abnormality on direct and retroflexion views. The terminal ileum appeared normal. Impression: - Non-bleeding internal hemorrhoids. - Diverticulosis in the recto-sigmoid colon, in the sigmoid colon and in the descending colon. - The examination was otherwise normal on direct and retroflexion views. - The examined portion of the ileum was normal. - No specimens collected. - The exam was otherwise normal to the cecum. Recommendation: - Patient has a contact number available for emergencies. The signs and symptoms of potential delayed complications were discussed with the patient. Return to normal activities tomorrow. Written discharge instructions were provided to the patient. - High fiber diet. - Discharge patient to home. - Continue present medications. - Repeat colonoscopy in 5 years for surveillance. - Return to referring physician. - The findings and recommendations were discussed with the patient. Som Carpenter MD Som Carpenter MD 06/18/2020 11:07:44 AM Electronically signed by Som Carpenter MD Number of Addenda: 0 Note Initiated On: 06/18/2020 10:32 AM Estimated Blood Loss: Estimated blood loss: none.
[2020-06-18 11:10] VITALS: BP 126/65
== END 2020-06-18 11:38 | disposition home or self-care (01) ==
LOC: M OPP 09:27
PROVIDERS: ATTEND Internal Medicine Gastroenterology
DX: Z12.11 Encounter for screening for malignant neoplasm of colon (principal); Z86.010 Personal history of colon polyps; K57.30 Diverticulosis of large intestine without perforation or abscess without bleeding; K64.0 First degree hemorrhoids; D61.818 Other pancytopenia; F17.210 Nicotine dependence, cigarettes, uncomplicated; Z79.899 Other long term (current) drug therapy; Z85.72 Personal history of non-Hodgkin lymphomas; Z92.21 Personal history of antineoplastic chemotherapy; Z92.3 Personal history of irradiation

== ENCOUNTER 2020-06-30 09:10 | Outpatient (CLI) | payer MEDICARE, OTHER ==
[~2020-06-30] VITALS: Ht 177.8 cm; Wt 76.4 kg
[~2020-06-30 09:10] MED LIST changes: +ACETAMINOPHEN TAB 650MG DOSE (2X325MG) PO ONE; +IMMUNE GLOBULIN 10% 10 GM in IV 1 EA IV ONE; +IMMUNE GLOBULIN 10% 20 GM in IV 1 EA IV ONE; -LIDOCAINE 2% 100MG/5ML SDV (FOR ANES.) As Ordered ONE; -NS 1,000 ML IV ONE; +SODIUM CHLORIDE 0.9% INJ 10 ML SYR IV PRN; +SODIUM CHLORIDE 0.9% INJ 10 ML SYR IV SCH; +diphenhydrAMINE 25MG CAP PO ONE
[2020-06-30 09:15] VITALS: BP 158/70
[2020-06-30 10:15] VITALS: BP 154/77
[2020-06-30 10:45] VITALS: BP 160/77
[2020-06-30 11:15] VITALS: BP 155/80
[2020-06-30 12:35] VITALS: BP 157/78
[2020-07-22] MEDS ORDERED: MULT-90 PO (09:30)
== END 2020-06-30 12:35 | disposition home or self-care (01) ==
LOC: M INFU 09:10
PROVIDERS: ATTEND Internal Medicine Hematology & Oncology
DX: D70.9 Neutropenia, unspecified (principal)
CPT/HCPCS: 96365; 96366; J1459; J1642

== ENCOUNTER 2020-11-25 18:12 | Emergency (ER) | payer MEDICARE, OTHER ==
[~2020-11-25] VITALS: Ht 177.8 cm; Wt 78.1 kg
[~2020-11-25 18:12] MED LIST changes: -ACETAMINOPHEN TAB 650MG DOSE (2X325MG) PO ONE; +ACYC1TAB PO; -ACYC400T PO; -IMMUNE GLOBULIN 10% 10 GM in IV 1 EA IV ONE; -IMMUNE GLOBULIN 10% 20 GM in IV 1 EA IV ONE; +MULT-90 PO; -SODIUM CHLORIDE 0.9% INJ 10 ML SYR IV PRN; -SODIUM CHLORIDE 0.9% INJ 10 ML SYR IV SCH; -diphenhydrAMINE 25MG CAP PO ONE
[2020-11-25] MEDS ORDERED: NS 1,000 ML IV SCH (18:45)
[2020-11-25 19:02] LABS: BASO % 0.3 % (0.0-1.0); HEMATOCRIT 40.3 % (42.0-52.0); HEMOGLOBIN 13.8 g/dl (13.5-17.5); LYMPH # 0.3 10^3/uL (1.5-5.0); LYMPH % 8.3 % (24.0-44.0); MEAN CORPUSCULAR HEMOGLOBIN 33.9 pg (27.0-33.0); MEAN CORPUSCULAR HGB CONC 34.2 g/dl (32.0-36.5); MONO # 0.1 10^3/uL (0.0-0.8); MONO % 2.2 % (2.0-8.0); NEUTROPHILS # 3.1 10^3/uL (1.5-8.5); NEUTROPHILS % 86.4 % (36.0-66.0); PLATELET COUNT, AUTOMATED 198 10^3/uL (150-450); RED BLOOD COUNT 4.07 10^6/uL (4.30-6.10); WHITE BLOOD COUNT 3.6 10^3/uL (4.0-10.0)
[2020-11-25 19:10] LABS: CK-MB VALUE MASS 1.8 NG/ML (<3.6); CPK CREATINE PHOSPHOKINASE 106 U/L (39-308); TROPONIN I < 0.02 NG/ML (< 0.10)
--- NOTE | 2020-11-25 19:18 | REP ---
INDICATION: cva COMPARISON: 09/09/2018 TECHNIQUE: Portable AP view of the chest FINDINGS: The mediastinum and cardiac silhouette are stable and within normal limits for portable technique. Kwmjlo-T-Ingh with tip in the SVC. The lung butt are clear without acute consolidation, effusion, or pneumothorax. Skeletal structures are intact. IMPRESSION: No acute cardiopulmonary process appreciated. <Electronically signed by Hussein Arguelles > 11/25/20 [id number]
--- NOTE | 2020-11-25 19:22 | REPVR ---
PROCEDURE INFORMATION: Exam: CT Head Without Contrast Exam date and time: 11/25/2020 6:42 PM Age: 65 years old Clinical indication: Other: CVA TECHNIQUE: Imaging protocol: Computed tomography of the head without contrast. Radiation optimization: All CT scans at this facility use at least one of these dose optimization techniques: automated exposure control; mA and/or kV adjustment per patient size (includes targeted exams where dose is matched to clinical indication); or iterative reconstruction. COMPARISON: No relevant prior studies available. FINDINGS: Brain: Small hypodensity in the anterior limb of the left internal capsule on image 13 of series 201, age indeterminate, potentially chronic. No evolving territorial infarct or intracranial hemorrhage seen. The brain demonstrates generalized volume loss Cerebral ventricles: The ventricles are mildly enlarged in keeping with volume loss. Bones/joints: Unremarkable. No acute fracture. Paranasal sinuses: Visualized sinuses are unremarkable. No fluid levels. Mastoid air cells: Visualized mastoid air cells are well aerated. Soft tissues: Unremarkable. IMPRESSION: Small, age indeterminate left internal capsule lacunar infarct. Electronically signed by: Sujata Bass On 11/25/2020 19:21:35 PM
[2020-11-25] MEDS ORDERED: ISOVUE-370 76% 100ML VIAL As Ordered ONE (19:28)
[2020-11-25] MEDS ORDERED: ALTEPLASE RECOMBINANT IV ONE (19:35)
[2020-11-25] MEDS ORDERED: ALTEPLASE 100MG VIAL IV ONE (19:35)
[2020-11-25 20:01] VITALS: BP 167/70
--- NOTE | 2020-11-25 20:06 | REPVR ---
PROCEDURE INFORMATION: Exam: CT Angiography Neck With Contrast Exam date and time: 11/25/2020 7:37 PM Age: 65 years old Clinical indication: Weakness; Additional info: CVA TECHNIQUE: Imaging protocol: Computed tomography angiography of the neck with contrast. 3D rendering (Not supervised by radiologist): MIP and/or 3D reconstructed images were created by the technologist. Radiation optimization: All CT scans at this facility use at least one of these dose optimization techniques: automated exposure control; mA and/or kV adjustment per patient size (includes targeted exams where dose is matched to clinical indication); or iterative reconstruction. Contrast material: ISOVUE 370; Contrast volume: 100 ml; Contrast route: INTRAVENOUS (IV); COMPARISON: PT PET/CT Skull/mid thigh 05/07/2018 10:48 AM FINDINGS: Right common carotid artery: No stenosis. No dissection or occlusion. Right internal carotid artery: Trace atherosclerosis at the right carotid bulb does not contribute to stenosis. Right external carotid artery: No occlusion or stenosis of the origin. Right vertebral artery: No stenosis. No dissection or occlusion. Left common carotid artery: No stenosis. No dissection or occlusion. Left internal carotid artery: There is a left chest port. Left external carotid artery: No occlusion or stenosis of the origin. Left vertebral artery: No stenosis. No dissection or occlusion. Bones/joints: No acute fracture. Uqyf-or-tnssptxc cervical degenerative disc disease. Mild lower cervical levoconvex scoliosis. Soft tissues: Normal. No significant soft tissue swelling. IMPRESSION: 1. No acute vascular findings in the neck. 2. 0% right ICA stenosis. 3. 0% left ICA stenosis. 4. The vertebral arteries are patent without stenoses. REFERENCES: NASCET CRITERIA. The degree of internal carotid artery stenosis is based on NASCET criteria. Normal is no stenosis. Mild is less than 50% stenosis. Moderate is 50-69% stenosis. Severe is 70% to 99% stenosis. Total occlusion is no detectable patent lumen. Electronically signed by: Sujata Bass On 11/25/2020 20:05:53 PM
[2020-11-25 20:11] VITALS: BP 153/92
--- NOTE | 2020-11-25 20:14 | REPVR ---
PROCEDURE INFORMATION: Exam: CT Angiography Head With Contrast, Arteriography Exam date and time: 11/25/2020 7:37 PM Age: 65 years old Clinical indication: Weakness; Additional info: CVA TECHNIQUE: Imaging protocol: Computed tomography angiography of the head with contrast. Exam focused on the arteries. 3D rendering (Not supervised by radiologist): MIP and/or 3D reconstructed images were created by the technologist. Radiation optimization: All CT scans at this facility use at least one of these dose optimization techniques: automated exposure control; mA and/or kV adjustment per patient size (includes targeted exams where dose is matched to clinical indication); or iterative reconstruction. Contrast material: ISOVUE 370; Contrast volume: 100 ml; Contrast route: INTRAVENOUS (IV); COMPARISON: CT Head without contrast 11/25/2020 6:44 PM FINDINGS: ANTERIOR CIRCULATION: Right internal carotid artery: The right ICA demonstrates trace calcified atherosclerosis which does not contribute to stenosis. No aneurysm. Right middle cerebral artery: Unremarkable. No occlusion or significant stenosis. No aneurysm. Right anterior cerebral artery: Unremarkable. No occlusion or significant stenosis. No aneurysm. Left internal carotid artery: The left ICA demonstrates trace calcified atherosclerosis which does not contribute to stenosis. No aneurysm. Left middle cerebral artery: Unremarkable. No occlusion or significant stenosis. No aneurysm. Left anterior cerebral artery: Unremarkable. No occlusion or significant stenosis. No aneurysm. POSTERIOR CIRCULATION: Right vertebral artery: Unremarkable. No occlusion or significant stenosis. No aneurysm. Left vertebral artery: Unremarkable. No occlusion or significant stenosis. No aneurysm. 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 Patent. No aneurysm. Right posterior cerebral artery: Unremarkable. No occlusion or significant stenosis. No aneurysm. Left posterior cerebral artery: Unremarkable. No occlusion or significant stenosis. No aneurysm. IMPRESSION: No proximal vessel branch occlusion seen. Electronically signed by: Sujata Bass On 11/25/2020 20:14:16 PM
[2020-11-25 20:20] VITALS: BP 149/93
[2020-11-25 20:30] VITALS: BP 143/74
[2020-11-25 20:34] LABS: RSV AMPLIFICATION NEGATIVE (NEGATIVE)
[2020-11-25] MEDS ORDERED: SODIUM CHLORIDE 0.9% 50 ML IV ONE (20:35)
--- NOTE | 2020-11-26 18:05 | ECGEPIP ---
[facility] - ED Test Date: 2020-11-25 Pat Name: LAURIE PENA Department: Room: - Gender: Male Residential Director: : 1955 Requested By: ANNIE MONREAL Order Number: [id number] Reading MD: Buster Hurley Measurements Intervals [place] Rate: 62 P: 71 TN: 148 QRS: 39 QRSD: 80 T: 75 QT: 412 QTc: 418 Interpretive Statements Normal sinus rhythm Nonspecific ST abnormality Similar to tracing done 09-09-18 Electronically Signed on 11-26-2020 18:04:57 EDT by Buster Hurley
== END 2020-11-25 20:40 | disposition short-term general hospital (02) ==
LOC: EDBD 18:12 → M ED 18:12
DX: I63.9 Cerebral infarction, unspecified (principal); I10 Essential (primary) hypertension; J45.909 Unspecified asthma, uncomplicated; C85.90 Non-Hodgkin lymphoma, unspecified, unspecified site; Z79.899 Other long term (current) drug therapy

== ENCOUNTER 2020-12-27 13:45 | Outpatient (RCR) | payer MEDICARE, OTHER | END 2021-01-03 | LOC: M PT 13:45 | DX: I63.531 Cerebral infarction due to unspecified occlusion or stenosis of right posterior cerebral artery (principal); R47.01 Aphasia ==

== ENCOUNTER → 2020-12-27 | Outpatient (REF) | payer MEDICARE, OTHER ==
[~2020-12-27] MED LIST changes: +ASPI81CH49 PO; +ATOR80TA59 PO; +BACTDSTA PO; +COVI100V IM; +LISI2.5T2 PO; +LOPE1CAP5 PO; -SULF1TAB93 PO
== END ==
LOC: M LAB REF 12:16
PROVIDERS: ATTEND Internal Medicine Hematology & Oncology
DX: C82.90 Follicular lymphoma, unspecified, unspecified site (principal)

== ENCOUNTER → 2021-01-31 | Outpatient (CLI) | payer MEDICARE, OTHER ==
[2021-01-31 14:44] LABS: HEMATOCRIT 27.8 % (42.0-52.0); HEMOGLOBIN 8.9 g/dl (13.5-17.5); PLATELET COUNT, AUTOMATED 252 10^3/uL (150-450); RED BLOOD COUNT 2.78 10^6/uL (4.30-6.10); WHITE BLOOD COUNT 4.2 10^3/uL (4.0-10.0)
--- NOTE | 2021-01-31 14:48 | REP ---
INDICATION: HTN COMPARISON: 11/25/2020 TECHNIQUE: PA and lateral. FINDINGS: The mediastinum and cardiac silhouette are normal. [id number] identified with tip in the SVC. The lung butt are clear and without acute consolidation, effusion, or pneumothorax. The skeletal structures are intact and normal. IMPRESSION: No acute cardiopulmonary process. <Electronically signed by Hussein Arguelles > 01/31/21 [id number]
[2021-01-31 15:25] LABS: ALBUMIN 2.9 GM/DL (3.2-5.2); ALT/SGPT 22 U/L (12-78); BLOOD UREA NITROGEN 14 MG/DL (7-18); CALCIUM LEVEL 8.2 MG/DL (8.8-10.2); CARBON DIOXIDE LEVEL 27 MEQ/L (21-32); CHLORIDE LEVEL 105 MEQ/L (98-107); CHOLESTEROL LEVEL 92 MG/DL (<200); CREATININE FOR GFR 0.79 MG/DL (0.70-1.30); GLOMERULAR FILTRATION RATE > 60.0 (>49); GLUCOSE, FASTING 86 MG/DL (70-100); HDL CHOLESTEROL 40 MG/DL (>40); LDL CHOLESTEROL 34 MG/DL (<100); NON-HDL-C 52 MG/DL; POTASSIUM SERUM 3.1 MEQ/L (3.5-5.1); SODIUM LEVEL 142 MEQ/L (136-145); THYROID STIMULATING HORMONE 0.826 uIU/ML (0.358-3.740); TOTAL PROTEIN 5.5 GM/DL (6.4-8.2); TRIGLYCERIDES LEVEL 90 MG/DL (<150)
--- NOTE | 2021-01-31 19:02 | ECGEPIP ---
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 No significant change from 11/25/20. Electronically Signed on 01-31-2021 19:01:43 EDT by Alejandro Rockwell
== END ==
LOC: M LAB 13:41
PROVIDERS: ATTEND Family Medicine
DX: I10 Essential (primary) hypertension (principal); E11.9 Type 2 diabetes mellitus without complications; J44.9 Chronic obstructive pulmonary disease, unspecified; R53.83 Other fatigue; R94.31 Abnormal electrocardiogram [ECG] [EKG]

== ENCOUNTER 2021-02-01 13:00 | Outpatient (RCR) | payer MEDICARE, OTHER | END 2021-02-02 | LOC: M PT 13:00 | PROVIDERS: ATTEND Family Medicine | DX: I63.531 Cerebral infarction due to unspecified occlusion or stenosis of right posterior cerebral artery (principal); R74.01 Elevation of levels of liver transaminase levels ==

== ENCOUNTER 2021-03-03 13:30 | Outpatient (RCR) | payer MEDICARE, OTHER ==
[~2021-03-03 13:30] MED LIST changes: -DICY20TA11 PO; +DICY20TA20 PO; +IRON65TA2 PO; -LEVO500T3 PO; +LEVO500T4 PO; -LISI2.5T2 PO; +LISI2.5T9 PO
[2021-07-22] MEDS ORDERED: RA T500C2 PO (13:44)
== END 2021-03-05 ==
LOC: M OT 13:30
PROVIDERS: ATTEND Family Medicine
DX: I63.9 Cerebral infarction, unspecified (principal)
CPT/HCPCS: 97032; 97110; 97112; 97116; 97140; 97168; G0283

== ENCOUNTER → 2021-04-05 | Outpatient (RCR) | payer MEDICARE, OTHER ==
[~2021-04-05] MED LIST changes: +DICY20TA11 PO; -DICY20TA20 PO; +LEVO500T3 PO; -LEVO500T4 PO
== END ==
LOC: M OT 03-08 12:56 → M PT 03-08 12:58 → M OT 03-08 12:58 → M PT 03-10 14:15 → M OT 03-15 12:49 → M PT 03-15 12:50 → M OT 03-15 12:50 → M PT 03-17 12:50 → M OT 03-22 12:46 → M PT 03-22 12:48 → M OT 03-24 12:57 → M PT 03-24 14:15 → M OT 03-24 14:15 → M PT 03-29 14:15 → M OT 03-31 12:44 → M PT 03-31 12:44 → M OT 12:49
PROVIDERS: ATTEND Family Medicine
DX: I63.9 Cerebral infarction, unspecified (principal); R26.9 Unspecified abnormalities of gait and mobility; M62.81 Muscle weakness (generalized)

== ENCOUNTER → 2021-05-05 | Outpatient (RCR) | payer MEDICARE, OTHER | LOC: M OT 04-12 12:50 → M PT 04-12 12:52 → M OT 04-19 12:55 → M PT 04-21 12:57 → M OT 04-26 12:58 → M PT 04-28 12:53 → M OT 04-28 12:53 → M PT 05-03 12:54 → M OT 12:45 → M PT 12:46 | PROVIDERS: ATTEND Family Medicine | DX: I69.359 Hemiplegia and hemiparesis following cerebral infarction affecting unspecified side (principal) ==

== ENCOUNTER 2021-06-02 12:51 | Outpatient (RCR) | payer MEDICARE, OTHER | END 2021-06-05 | LOC: M PT 12:51 → M OT 12:51 | PROVIDERS: ATTEND Family Medicine | DX: I63.9 Cerebral infarction, unspecified (principal) ==

== ENCOUNTER → 2021-07-05 | Outpatient (RCR) | payer MEDICARE, OTHER ==
[~2021-07-05] MED LIST changes: -DICY20TA11 PO; +DICY20TA20 PO; -LEVO500T3 PO; +LEVO500T4 PO
== END ==
LOC: M PT 06-07 12:56 → M OT 06-07 13:00 → M PT 06-14 14:12 → M OT 06-16 13:00 → M PT 06-16 13:01 → M OT 06-21 13:00 → M PT 06-21 13:03 → M OT 06-23 12:57 → M PT 06-23 12:58 → M OT 13:00 → M PT 13:08
PROVIDERS: ATTEND Family Medicine
DX: I63.9 Cerebral infarction, unspecified (principal)

== ENCOUNTER → 2021-07-22 | Outpatient (REF) | payer MEDICARE, OTHER ==
[2021-07-22 17:46] LABS: HEMATOCRIT 38.4 % (42.0-52.0); HEMOGLOBIN 12.4 g/dl (13.5-17.5); MEAN CORPUSCULAR HEMOGLOBIN 31.5 pg (27.0-33.0); MEAN CORPUSCULAR HGB CONC 32.3 g/dl (32.0-36.5); MEAN CORPUSCULAR VOLUME 97.5 fl (80.0-96.0); PLATELET COUNT, AUTOMATED 212 10^3/uL (150-450); RED BLOOD COUNT 3.94 10^6/uL (4.30-6.10); WHITE BLOOD COUNT 4.7 10^3/uL (4.0-10.0)
[2021-07-22 18:05] LABS: ALBUMIN 4.1 GM/DL (3.2-5.2); ALT/SGPT 30 U/L (12-78); BILIRUBIN,DIRECT 0.3 MG/DL (0.0-0.2); BILIRUBIN,TOTAL 1.2 MG/DL (0.2-1.0); BLOOD UREA NITROGEN 13 MG/DL (7-18); CALCIUM LEVEL 9.3 MG/DL (8.8-10.2); CARBON DIOXIDE LEVEL 30 MEQ/L (21-32); CHLORIDE LEVEL 105 MEQ/L (98-107); CREATININE FOR GFR 0.97 MG/DL (0.70-1.30); GLOMERULAR FILTRATION RATE > 60.0 (>49); GLUCOSE, FASTING 92 MG/DL (70-100); POTASSIUM SERUM 3.6 MEQ/L (3.5-5.1); SODIUM LEVEL 141 MEQ/L (136-145); TOTAL PROTEIN 6.8 GM/DL (6.4-8.2)
[2021-07-22 18:51] LABS: HEMOGLOBIN A1c 5.6 %
== END ==
LOC: M LAB REF 13:51
PROVIDERS: ATTEND Family Medicine
DX: I10 Essential (primary) hypertension (principal); R53.83 Other fatigue; E03.8 Other specified hypothyroidism

== ENCOUNTER 2021-08-04 12:54 | Outpatient (RCR) | payer MEDICARE, OTHER ==
[~2021-08-04 12:54] MED LIST changes: +DICY20TA11 PO; -DICY20TA20 PO; +LEVO500T3 PO; -LEVO500T4 PO
== END 2021-08-05 ==
LOC: M PT 12:54 → M OT 12:54
PROVIDERS: ATTEND Family Medicine
DX: I63.9 Cerebral infarction, unspecified (principal); R26.89 Other abnormalities of gait and mobility

== ENCOUNTER 2021-09-01 12:53 | Outpatient (RCR) | payer MEDICARE, OTHER ==
[~2021-09-01 12:53] MED LIST changes: -DICY20TA11 PO; +DICY20TA20 PO; -LEVO500T3 PO; +LEVO500T4 PO
== END 2021-09-05 ==
LOC: M OT 12:53
PROVIDERS: ATTEND Family Medicine
DX: I63.9 Cerebral infarction, unspecified (principal)

== ENCOUNTER 2021-09-29 10:45 | Outpatient (RCR) | payer MEDICARE, OTHER | END 2021-10-03 | LOC: M OT 10:45 | PROVIDERS: ATTEND Family Medicine | DX: I63.9 Cerebral infarction, unspecified (principal) ==

== ENCOUNTER → 2021-11-03 | Outpatient (RCR) | payer MEDICARE, OTHER ==
[~2021-11-03] MED LIST changes: +B-122500 PO; +COQ150CH PO; +NOXI1TAB PO; +VITA250T26 PO
== END ==
LOC: M OT 10-04 11:21
PROVIDERS: ATTEND Family Medicine
DX: M62.81 Muscle weakness (generalized) (principal); I63.532 Cerebral infarction due to unspecified occlusion or stenosis of left posterior cerebral artery

== ENCOUNTER 2021-12-01 13:15 | Outpatient (RCR) | payer MEDICARE, OTHER | END 2021-12-03 | LOC: M OT 13:15 | PROVIDERS: ATTEND Family Medicine | DX: M62.81 Muscle weakness (generalized) (principal) ==

== ENCOUNTER 2021-12-29 13:13 | Outpatient (RCR) | payer MEDICARE, OTHER | END 2022-01-03 | LOC: M OT 13:13 | PROVIDERS: ATTEND Family Medicine | DX: I63.9 Cerebral infarction, unspecified (principal) ==

== ENCOUNTER 2022-01-05 13:12 | Outpatient (RCR) | payer MEDICARE, OTHER | END 2022-02-02 | LOC: M OT 13:12 | PROVIDERS: ATTEND Family Medicine | DX: I63.9 Cerebral infarction, unspecified (principal) ==

== ENCOUNTER → 2022-01-20 | Outpatient (CLI) | payer MEDICARE, OTHER ==
[2022-01-20 12:52] LABS: HEMATOCRIT 39.8 % (42.0-52.0); HEMOGLOBIN 13.5 g/dl (13.5-17.5); MEAN CORPUSCULAR HEMOGLOBIN 33.5 pg (27.0-33.0); MEAN CORPUSCULAR HGB CONC 33.9 g/dl (32.0-36.5); MEAN CORPUSCULAR VOLUME 98.8 fl (80.0-96.0); PLATELET COUNT, AUTOMATED 170 10^3/uL (150-450); RED BLOOD COUNT 4.03 10^6/uL (4.30-6.10); WHITE BLOOD COUNT 5.8 10^3/uL (4.0-10.0)
[2022-01-20 13:13] LABS: HEMOGLOBIN A1c 5.8 %
[2022-01-20 13:36] LABS: ALBUMIN 4.1 GM/DL (3.2-5.2); ALT/SGPT 20 U/L (12-78); BLOOD UREA NITROGEN 15 MG/DL (7-18); CARBON DIOXIDE LEVEL 28 MEQ/L (21-32); CHLORIDE LEVEL 107 MEQ/L (98-107); CHOLESTEROL LEVEL 81 MG/DL (<200); CHOLESTEROL RISK RATIO 1.588 (<5); CREATININE FOR GFR 1.13 MG/DL (0.70-1.30); GLOMERULAR FILTRATION RATE > 60.0 (>49); GLUCOSE, FASTING 98 MG/DL (70-100); HDL CHOLESTEROL 51 MG/DL (>40); LDL CHOLESTEROL 19 MG/DL (<100); NON-HDL-C 30 MG/DL; POTASSIUM SERUM 4.5 MEQ/L (3.5-5.1); PROSTATIC SPECIFIC AG MONITOR 1.24 NG/ML (< 4.00); SODIUM LEVEL 141 MEQ/L (136-145); TOTAL 25(OH) VITAMIN D 44.4 NG/ML (30.0-100.0); TOTAL PROTEIN 6.6 GM/DL (6.4-8.2); TRIGLYCERIDES LEVEL 54 MG/DL (<150)
== END ==
LOC: M LAB 12:24
PROVIDERS: ATTEND Family Medicine
DX: I10 Essential (primary) hypertension (principal); R53.83 Other fatigue; E03.9 Hypothyroidism, unspecified; Z79.899 Other long term (current) drug therapy

== ENCOUNTER → 2022-07-13 | Outpatient (CLI) | payer MEDICARE, OTHER ==
[~2022-07-13] MED LIST changes: +LEVO1TAB39 PO; -LEVO500T4 PO; +MUCI1TAB16 PO
[2022-07-13 15:14] LABS: HEMATOCRIT 40.2 % (42.0-52.0); HEMOGLOBIN 13.3 g/dl (13.5-17.5); MEAN CORPUSCULAR HEMOGLOBIN 32.6 pg (27.0-33.0); MEAN CORPUSCULAR HGB CONC 33.1 g/dl (32.0-36.5); MEAN CORPUSCULAR VOLUME 98.5 fl (80.0-96.0); PLATELET COUNT, AUTOMATED 186 10^3/uL (150-450); RED BLOOD COUNT 4.08 10^6/uL (4.30-6.10); WHITE BLOOD COUNT 5.1 10^3/uL (4.0-10.0)
[2022-07-13 15:42] LABS: ALBUMIN 4.2 G/DL (3.2-5.2); ALKALINE PHOSPHATASE 83 U/L (46-116); ALT/SGPT 22 U/L (7.0-40); AST/SGOT 19 U/L (<34); BILIRUBIN,TOTAL 1.2 MG/DL (0.3-1.2); BLOOD UREA NITROGEN 15 MG/DL (9-23); CALCIUM LEVEL 9.1 MG/DL (8.3-10.6); CARBON DIOXIDE LEVEL 30 MMOL/L (20-31); CHLORIDE LEVEL 103 MMOL/L (98-107); CHOLESTEROL LEVEL 103 MG/DL (<200); CHOLESTEROL RISK RATIO 2.04 (<5); GLOMERULAR FILTRATION RATE > 60.0 (>49); GLUCOSE, FASTING 94 MG/DL (74-106); HDL CHOLESTEROL 50.3 MG/DL (>40); LDL CHOLESTEROL 40.3 MG/DL (<100); NON-HDL-C 53 MG/DL; POTASSIUM SERUM 3.8 MMOL/L (3.5-5.1); PROSTATIC SPECIFIC AG MONITOR 0.81 NG/ML (< 4.00); SODIUM LEVEL 142 MMOL/L (136-145); TOTAL PROTEIN 6.3 G/DL (5.7-8.2); TRIGLYCERIDES LEVEL 62 MG/DL (<150)
[2022-07-13 15:46] LABS: TESTOSTERONE 541 NG/DL (241-827)
[2022-07-13 15:47] LABS: THYROID STIMULATING HORMONE 1.105 uIU/ML (0.55-4.78)
[2022-07-13 17:27] LABS: HEMOGLOBIN A1c 5.7 % (4.0-6.0)
== END ==
LOC: M RAD 13:57
PROVIDERS: ATTEND Family Medicine
DX: I10 Essential (primary) hypertension (principal); R53.83 Other fatigue; E03.9 Hypothyroidism, unspecified; R00.1 Bradycardia, unspecified

== ENCOUNTER → 2023-05-28 | Outpatient (CLI) | payer MEDICARE, OTHER ==
[~2023-05-28] MED LIST changes: +DOXA1TAB42; +LEVO1TAB39; +LISI10TA22; +LOPR1TAB6 PO; +METO1TAB87; +ONDA8TAB8 PO; +POTA-298 PO; -POTA1TAB14 PO; +PROC10TA5 PO
== END ==
LOC: M PLARAD 09:13
PROVIDERS: ATTEND Internal Medicine Hematology & Oncology
DX: C82.90 Follicular lymphoma, unspecified, unspecified site (principal); C25.2 Malignant neoplasm of tail of pancreas
CPT/HCPCS: 78815; A9552

== ENCOUNTER → 2023-06-13 | Outpatient (CLI) | payer MEDICARE, OTHER ==
[~2023-06-13] MED LIST changes: +BARIUM SULFATE 700 MG TABLET (E-Z-DISK) As Ordered ONE; -DOXA1TAB42; +E-Z-PAQUE 96% w/w SUSP 176GM BTL As Ordered ONE; -LEVO1TAB39; -METO1TAB87; -ONDA8TAB8 PO; -PROC10TA5 PO; +VARIBAR NECTAR 40% w/v 240ML SUSP BTL As Ordered ONE; +VARIBAR PUDDING 40% w/v 230ML TUBE As Ordered ONE
[2023-06-13 11:54] LABS: HEMATOCRIT 37.1 % (42.0-52.0); HEMOGLOBIN 12.3 g/dl (13.5-17.5); MEAN CORPUSCULAR HEMOGLOBIN 32.9 pg (27.0-33.0); MEAN CORPUSCULAR HGB CONC 33.2 g/dl (32.0-36.5); MEAN CORPUSCULAR VOLUME 99.2 fl (80.0-96.0); PLATELET COUNT, AUTOMATED 219 10^3/uL (150-450); RED BLOOD COUNT 3.74 10^6/uL (4.30-6.10); WHITE BLOOD COUNT 12.9 10^3/uL (4.0-10.0)
[2023-06-13 12:30] LABS: ALBUMIN 3.9 G/DL (3.2-5.2); ALKALINE PHOSPHATASE 77 U/L (46-116); ALT/SGPT 15 U/L (7.0-40); AST/SGOT 19 U/L (<34); BILIRUBIN,TOTAL 0.5 MG/DL (0.3-1.2); BLOOD UREA NITROGEN 25 MG/DL (9-23); CALCIUM LEVEL 9.5 MG/DL (8.3-10.6); CARBON DIOXIDE LEVEL 29 MMOL/L (20-31); CHLORIDE LEVEL 102 MMOL/L (98-107); CHOLESTEROL LEVEL 132 MG/DL (<200); CHOLESTEROL RISK RATIO 2.52 (<5); CREATININE FOR GFR 0.91 MG/DL (0.70-1.30); GLOMERULAR FILTRATION RATE > 60.0 (>42); GLUCOSE, FASTING 91 MG/DL (74-106); HDL CHOLESTEROL 52.2 MG/DL (>40); LDL CHOLESTEROL 51.4 MG/DL (<100); NON-HDL-C 79.8 MG/DL; POTASSIUM SERUM 3.9 MMOL/L (3.5-5.1); PROSTATIC SPECIFIC AG MONITOR 0.77 NG/ML (< 4.00); SODIUM LEVEL 139 MMOL/L (136-145); THYROID STIMULATING HORMONE 0.609 uIU/ML (0.55-4.78); TOTAL PROTEIN 6.4 G/DL (5.7-8.2); TRIGLYCERIDES LEVEL 142 MG/DL (<150)
== END ==
LOC: M RAD 11:06
PROVIDERS: ATTEND Family Medicine
DX: I10 Essential (primary) hypertension (principal); R53.83 Other fatigue; J90 Pleural effusion, not elsewhere classified; R00.1 Bradycardia, unspecified

== ENCOUNTER → 2023-07-03 | Outpatient (CLI) | payer MEDICARE, OTHER ==
[~2023-07-03] MED LIST changes: -BARIUM SULFATE 700 MG TABLET (E-Z-DISK) As Ordered ONE; +DOXA1TAB42; -E-Z-PAQUE 96% w/w SUSP 176GM BTL As Ordered ONE; +LEVO1TAB39; +METO1TAB87; -VARIBAR NECTAR 40% w/v 240ML SUSP BTL As Ordered ONE; -VARIBAR PUDDING 40% w/v 230ML TUBE As Ordered ONE
== END ==
LOC: M RAD 13:18
PROVIDERS: ATTEND Family Medicine
DX: J18.9 Pneumonia, unspecified organism (principal)

== ENCOUNTER → 2023-08-02 | Outpatient (CLI) | payer MEDICARE, OTHER ==
[~2023-08-02] MED LIST changes: +ONDA8TAB8 PO; +PROC10TA5 PO
== END ==
LOC: M ONCR 14:45
PROVIDERS: ATTEND General Practice
DX: C25.2 Malignant neoplasm of tail of pancreas (principal); Z85.72 Personal history of non-Hodgkin lymphomas; Z71.2 Person consulting for explanation of examination or test findings; F17.290 Nicotine dependence, other tobacco product, uncomplicated; Z79.82 Long term (current) use of aspirin; Z79.899 Other long term (current) drug therapy; Z92.21 Personal history of antineoplastic chemotherapy

== ENCOUNTER 2023-08-05 11:31 | Emergency (ER) | payer MEDICARE, OTHER ==
[~2023-08-05] VITALS: Ht 177.8 cm; Wt 74.1 kg
[2023-08-05 14:42] VITALS: BP 152/75; TEMP 100.7; O2SAT 97
[2023-08-05] MEDS ORDERED: ACETAMINOPHEN 325 MG TAB PO ONE (14:45)
== END 2023-08-05 14:56 | disposition home or self-care (01) ==
LOC: M ED 11:31
DX: J09.X2 Influenza due to identified novel influenza A virus with other respiratory manifestations (principal); C25.9 Malignant neoplasm of pancreas, unspecified; Z86.73 Personal history of transient ischemic attack (TIA), and cerebral infarction without residual deficits; Z79.899 Other long term (current) drug therapy; Z79.82 Long term (current) use of aspirin

== ENCOUNTER → 2023-09-12 | Outpatient (CLI) | payer MEDICARE, OTHER ==
[~2023-09-12] MED LIST changes: +CREO3000 PO; +GASTROGRAFIN SOLUTION 30ML As Ordered ONE; +ISOVUE-370 76% 100ML VIAL As Ordered ONE; +POTA-151 PO
== END ==
LOC: M RAD 08:59
PROVIDERS: ATTEND General Practice
DX: C25.2 Malignant neoplasm of tail of pancreas (principal); C25.1 Malignant neoplasm of body of pancreas; C82.90 Follicular lymphoma, unspecified, unspecified site; R91.1 Solitary pulmonary nodule; N28.1 Cyst of kidney, acquired; K76.89 Other specified diseases of liver; F17.290 Nicotine dependence, other tobacco product, uncomplicated; Z71.2 Person consulting for explanation of examination or test findings; Z79.82 Long term (current) use of aspirin; Z79.899 Other long term (current) drug therapy; Z92.21 Personal history of antineoplastic chemotherapy
CPT/HCPCS: 74177; G0463; Q9963; Q9967

== ENCOUNTER → 2023-09-12 | Outpatient (CLI) | payer MEDICARE, OTHER ==
[~2023-09-12] MED LIST changes: -GASTROGRAFIN SOLUTION 30ML As Ordered ONE; -ISOVUE-370 76% 100ML VIAL As Ordered ONE
== END ==
LOC: M ONCR 13:01
PROVIDERS: ATTEND General Practice
DX: C25.2 Malignant neoplasm of tail of pancreas (principal); C25.1 Malignant neoplasm of body of pancreas; C82.90 Follicular lymphoma, unspecified, unspecified site; R91.1 Solitary pulmonary nodule; N28.1 Cyst of kidney, acquired; K76.89 Other specified diseases of liver; F17.290 Nicotine dependence, other tobacco product, uncomplicated; Z71.2 Person consulting for explanation of examination or test findings; Z79.82 Long term (current) use of aspirin; Z79.899 Other long term (current) drug therapy; Z92.21 Personal history of antineoplastic chemotherapy

== ENCOUNTER → 2023-10-04 | Outpatient (RCR) | payer MEDICARE, OTHER ==
[~2023-10-04] MED LIST changes: +ATOR1TAB21; -DOXA1TAB42; +DOXA1TAB42 PO; -LISI10TA22; +LISI10TA22 PO; -METO1TAB87; +METO1TAB87 PO
== END ==
LOC: M ONCR 09-12 13:26
PROVIDERS: ATTEND General Practice
DX: Z51.0 Encounter for antineoplastic radiation therapy (principal); C25.2 Malignant neoplasm of tail of pancreas

== ENCOUNTER → 2023-10-30 | Outpatient (CLI) | payer MEDICARE, OTHER ==
[~2023-10-30] MED LIST changes: +DEXA2TA PO; +OLAN1TAB16; +OLAN1TAB16 PO
== END ==
LOC: M ONCM 15:03
PROVIDERS: ATTEND Dietitian, Registered
DX: C25.9 Malignant neoplasm of pancreas, unspecified (principal); Z85.72 Personal history of non-Hodgkin lymphomas; Z71.3 Dietary counseling and surveillance

== ENCOUNTER 2023-10-31 14:06 | Outpatient (RCR) | payer MEDICARE, OTHER | END 2023-11-04 | LOC: M ONCR 14:06 | PROVIDERS: ATTEND General Practice | DX: Z51.0 Encounter for antineoplastic radiation therapy (principal); C25.2 Malignant neoplasm of tail of pancreas ==

== ENCOUNTER 2023-11-12 04:43 | Emergency (ER) | payer MEDICARE, OTHER ==
[~2023-11-12] VITALS: Ht 177.8 cm; Wt 71.4 kg
[~2023-11-12 04:43] MED LIST changes: -ATOR1TAB21; +ATOR1TAB21 PO; +DAPS100T22 PO; -DAPS10TA PO
[2023-11-12 05:22] LABS: BASO % 0.4 % (0.0-1.0); EOS # 0.1 10^3/uL (0.0-0.5); EOS % 1.4 % (0.0-3.0); HEMATOCRIT 31.8 % (42.0-52.0); HEMOGLOBIN 10.6 g/dl (13.5-17.5); LYMPH # 0.2 10^3/uL (1.5-5.0); LYMPH % 2.3 % (24.0-44.0); MEAN CORPUSCULAR HEMOGLOBIN 33.8 pg (27.0-33.0); MEAN CORPUSCULAR HGB CONC 33.3 g/dl (32.0-36.5); MEAN CORPUSCULAR VOLUME 101.3 fl (80.0-96.0); MONO # 1.8 10^3/uL (0.0-0.8); MONO % 21.5 % (2.0-8.0); NEUTROPHILS # 6.2 10^3/uL (1.5-8.5); PLATELET COUNT, AUTOMATED 122 10^3/uL (150-450); RED BLOOD COUNT 3.14 10^6/uL (4.30-6.10); WHITE BLOOD COUNT 8.4 10^3/uL (4.0-10.0)
[2023-11-12 06:37] LABS: BLOOD UREA NITROGEN 16 MG/DL (9-23); CALCIUM LEVEL 7.5 MG/DL (8.3-10.6); CARBON DIOXIDE LEVEL 30 MMOL/L (20-31); CHLORIDE LEVEL 102 MMOL/L (98-107); CREATININE FOR GFR 0.72 MG/DL (0.70-1.30); GLOMERULAR FILTRATION RATE > 60.0 (>42); GLUCOSE, FASTING 115 MG/DL (74-106); POTASSIUM SERUM 3.5 MMOL/L (3.5-5.1); SODIUM LEVEL 134 MMOL/L (136-145)
[2023-11-12] MEDS ORDERED: HOME MED LIST COMPLETE! XX SCH (07:00)
[2023-11-12] MEDS ORDERED: ASPI-129 PO (07:00)
[2023-11-12] MEDS ORDERED: CREO3000 PO (07:00)
[2023-11-12] MEDS ORDERED: ONDA8TAB8 PO (07:00)
[2023-11-12] MEDS ORDERED: MUCI600T31 PO (07:00)
[2023-11-12] MEDS ORDERED: PROC10TA5 PO ×2 (07:00→08:33)
[2023-11-12] MEDS: NS 1,000 ML IV ONE (07:04)
[2023-11-12] MEDS: PROMETHAZINE 25MG/ML 1ML VIAL IV ONE (07:11)
[2023-11-12] MEDS ORDERED: ROLLMIS8 XX (08:29)
[2023-11-12] MEDS ORDERED: ONDA4TAB6 PO (08:33)
[2023-11-12 08:52] VITALS: BP 150/67; TEMP 97.1; O2SAT 99
== END 2023-11-12 08:54 | disposition home or self-care (01) ==
LOC: M ED 04:43
DX: R53.1 Weakness (principal); R11.2 Nausea with vomiting, unspecified; C25.9 Malignant neoplasm of pancreas, unspecified; Z92.21 Personal history of antineoplastic chemotherapy; Z92.3 Personal history of irradiation; K57.92 Diverticulitis of intestine, part unspecified, without perforation or abscess without bleeding; I10 Essential (primary) hypertension; Z86.73 Personal history of transient ischemic attack (TIA), and cerebral infarction without residual deficits; Z79.899 Other long term (current) drug therapy
CPT/HCPCS: 80048; 85025; 99284; J2550

== ENCOUNTER → 2023-11-30 | Outpatient (CLI) | payer MEDICARE, OTHER ==
[~2023-11-30] MED LIST changes: +ASPI-129 PO; +MEGE40SU6 PO; +METO10TA2 PO; +MUCI600T31 PO; +ONDA4TAB6 PO; +ROLLMIS8 XX; +TRAM50TA2 PO
== END ==
LOC: M RAD 08:20
PROVIDERS: ATTEND General Practice
DX: C25.2 Malignant neoplasm of tail of pancreas (principal); M25.551 Pain in right hip; M16.11 Unilateral primary osteoarthritis, right hip; R53.83 Other fatigue; R60.0 Localized edema; Z79.899 Other long term (current) drug therapy
CPT/HCPCS: 73502; G0463

== ENCOUNTER → 2023-11-30 | Outpatient (CLI) | payer MEDICARE, OTHER | LOC: M ONCR 08:48 | PROVIDERS: ATTEND General Practice | DX: M25.551 Pain in right hip (principal); M16.11 Unilateral primary osteoarthritis, right hip; R53.83 Other fatigue; R60.0 Localized edema; Z79.899 Other long term (current) drug therapy ==

== ENCOUNTER → 2023-12-14 | Outpatient (CLI) | payer MEDICARE, OTHER | LOC: M ONCR 10:24 | PROVIDERS: ATTEND General Practice | DX: Z01.89 Encounter for other specified special examinations (principal); R11.0 Nausea; R53.1 Weakness ==

== ENCOUNTER 2024-01-09 11:33 | Inpatient (IN) | payer MEDICARE, OTHER ==
[~2024-01-09] VITALS: Ht 177.8 cm; Wt 68.0 kg
[~2024-01-09 11:33] MED LIST changes: +ONDA-282 PO; +ONDA-284 PO; -ONDA4TAB6 PO; -ONDA8TAB8 PO
[2024-01-09 11:59] VITALS: TEMP 97.1
[2024-01-09 12:48] VITALS: O2SAT 97
[2024-01-09 13:00] VITALS: BP 115/53
[2024-01-09] MEDS ORDERED: ONDA-282 PO (13:27)
[2024-01-09] MEDS ORDERED: ACET-683 PO (13:27)
[2024-01-09] MEDS ORDERED: HOME MED LIST COMPLETE! XX SCH (13:30)
[2024-01-09] MEDS ORDERED: LORazepam 2 MG/ML 1ML VIAL IV PRN (13:40)
[2024-01-09] MEDS: ONDANSETRON 4MG ORAL DISINTEGRATING TAB PO PRN (19:09)
[2024-01-09] MEDS: ACETAMINOPHEN TAB 650MG DOSE (2X325MG) PO PRN (21:53)
[2024-01-10] MEDS: LORazepam 1 MG TAB PO PRN (02:28)
[2024-01-11] MEDS: MORPHINE 10MG/0.5ML ORAL CONCENTRATE SOLUTION U/D SL PRN (01:49)
[2024-01-11] MEDS: MORPHINE 2 MG/ML 1ML VIAL IV PRN (09:50)
[2024-01-12] MEDS: MORPHINE 10MG/0.5ML ORAL CONCENTRATE SOLUTION U/D SL PRN (14:13)
[2024-01-13] MEDS: MORPHINE 10MG/0.5ML ORAL CONCENTRATE SOLUTION U/D SL PRN (18:20)
[2024-01-14] MEDS: HYOSCYAMINE SULFATE 0.125 MG SUBL TABLET PO PRN (14:33)
[2024-01-15] MEDS: SCOPOLAMINE 1MG TRANSDERMAL PATCH TOP PRN (18:55)
== END 2024-01-16 01:10 | disposition expired | DRG 951 ==
LOC: EDBD 11:33 → M ED 11:33 → M ED INP 11:34 → M MS5PR 14:43 → OBSVTOIN 01-14 08:58
PROVIDERS: ADMIT Internal Medicine; ATTEND Internal Medicine
DX: Z51.5 Encounter for palliative care (principal); E43 Unspecified severe protein-calorie malnutrition; C25.2 Malignant neoplasm of tail of pancreas; Z94.81 Bone marrow transplant status; I69.351 Hemiplegia and hemiparesis following cerebral infarction affecting right dominant side; C78.7 Secondary malignant neoplasm of liver and intrahepatic bile duct; C78.00 Secondary malignant neoplasm of unspecified lung; C78.6 Secondary malignant neoplasm of retroperitoneum and peritoneum; R64 Cachexia; R57.1 Hypovolemic shock; Z66 Do not resuscitate; Z87.891 Personal history of nicotine dependence; Z92.3 Personal history of irradiation; Z79.82 Long term (current) use of aspirin; Z79.899 Other long term (current) drug therapy